=== PATIENT | female | born 1970 | race American Indian/Alaskan Native ===

== ENCOUNTER → 2017-09-20 | Outpatient (REF) | payer OTHER ==
[2017-09-20 17:51] LABS: ESTIMATED AVERAGE GLUCOSE 120 MG/DL (60-110); HEMOGLOBIN A1c 5.8 %
[2017-09-20 17:53] LABS: ALBUMIN 4.5 GM/DL (3.2-5.2); ALBUMIN/GLOBULIN RATIO 1.18 (1.00-1.93); ALKALINE PHOSPHATASE 81 U/L (45-117); ALT/SGPT 23 U/L (12-78); ANION GAP 6 MEQ/L (8-16); AST/SGOT 25 U/L (7-37); BILIRUBIN,TOTAL 0.3 MG/DL (0.2-1.0); BLOOD UREA NITROGEN 11 MG/DL (7-18); CALCIUM LEVEL 9.6 MG/DL (8.5-10.1); CARBON DIOXIDE LEVEL 29 MEQ/L (21-32); CHLORIDE LEVEL 106 MEQ/L (98-107); CHOLESTEROL LEVEL 204 MG/DL (<200); CHOLESTEROL RISK RATIO 3.777 (<5); CREATININE FOR GFR 0.61 MG/DL (0.55-1.30); GLOMERULAR FILTRATION RATE > 60.0 (>58); GLUCOSE, FASTING 97 MG/DL (70-100); HDL CHOLESTEROL 54 MG/DL (>40); LDL CHOLESTEROL 132.6 MG/DL (<100); NON-HDL-C 150 MG/DL; POTASSIUM SERUM 4.3 MEQ/L (3.5-5.1); SODIUM LEVEL 141 MEQ/L (136-145); TOTAL PROTEIN 8.3 GM/DL (6.4-8.2); TRIGLYCERIDES LEVEL 87 MG/DL (<150)
[2017-09-20 18:08] LABS: BASO # 0.1 10^3/uL (0.0-0.2); BASO % 0.8 % (0.0-1.0); EOS # 0.2 10^3/uL (0.0-0.50); EOS % 2.3 % (0.0-3.0); HEMATOCRIT 39.2 % (36.0-47.0); HEMOGLOBIN 12.9 g/dl (12.0-16.0); IMMATURE GRANULOCYTE % 0.3 % (0-3.0); LYMPH # 2.8 10^3/uL (1.5-4.5); LYMPH % 42.3 % (24.0-44.0); MEAN CORPUSCULAR HEMOGLOBIN 29.3 pg (27.0-33.0); MEAN CORPUSCULAR HGB CONC 32.9 g/dl (32.0-36.5); MEAN CORPUSCULAR VOLUME 89.1 fl (80.0-96.0); MONO # 0.4 10^3/uL (0.0-0.8); MONO % 6.3 % (0.0-5.0); NEUTROPHILS # 3.1 10^3/uL (1.8-7.7); PLATELET COUNT, AUTOMATED 251 10^3/uL (150-450); RED CELL DISTRIBUTION WIDTH 13.5 % (11.5-14.5); WHITE BLOOD COUNT 6.5 10^3/uL (4.0-10.0)
== END ==
LOC: M SFHCPLAZ 15:39
DX: Z00.00 Encounter for general adult medical examination without abnormal findings (principal)
CPT/HCPCS: 83036

== ENCOUNTER → 2017-11-12 | Outpatient (REF) | payer OTHER | LOC: M LAB REF 17:17 | DX: J02.9 Acute pharyngitis, unspecified (principal) ==

== ENCOUNTER → 2017-12-21 | Outpatient (REF) | payer OTHER ==
[2017-12-24 14:16] LABS: HPV HYBRID CAPTURE II Positive (Negative)
== END ==
LOC: M SFHCWAGY 13:30
DX: Z12.4 Encounter for screening for malignant neoplasm of cervix (principal)

== ENCOUNTER → 2017-12-28 | Outpatient (CLI) | payer OTHER | LOC: M WHC 14:27 | DX: Z12.31 Encounter for screening mammogram for malignant neoplasm of breast (principal) | CPT/HCPCS: 77067 ==

== ENCOUNTER → 2018-05-05 | Outpatient (REF) | payer OTHER ==
[2018-05-05 13:10] LABS: C REACTIVE PROTEIN QUANTITATIV < 0.30 MG/DL (0.00-0.30)
[2018-05-05 13:10] LABS: URIC ACID 3.8 MG/DL (2.6-6.0)
[2018-05-05 13:46] LABS: ERYTHROCYTE SEDIMENTATION RATE 17 mm/hr (0-20)
[2018-05-05 15:31] LABS: ESTIMATED AVERAGE GLUCOSE 123 MG/DL (60-110); HEMOGLOBIN A1c 5.9 %
== END ==
LOC: M SFHCPLAZ 09:10
DX: M13.0 Polyarthritis, unspecified (principal); R73.03 Prediabetes

== ENCOUNTER → 2018-08-11 | Outpatient (REF) | payer OTHER ==
[2018-08-11 16:00] LABS: HEMOGLOBIN A1c 6.1 %
== END ==
LOC: M SFHCPLAZ 08:54
PROVIDERS: ATTEND Family Medicine
DX: R73.03 Prediabetes (principal); G62.9 Polyneuropathy, unspecified

== ENCOUNTER → 2018-10-31 | Outpatient (REF) | payer OTHER ==
[2018-10-31 19:16] LABS: IMMUNOGLOBULIN E 40.1 IU/ML (<100)
== END ==
LOC: M LABDRAWP 15:13
PROVIDERS: ATTEND Allergy & Immunology
DX: J30.2 Other seasonal allergic rhinitis (principal); J32.0 Chronic maxillary sinusitis; R05 Cough

== ENCOUNTER → 2018-12-29 | Outpatient (REF) | payer OTHER ==
[2018-12-31 15:14] LABS: HPV HYBRID CAPTURE II Negative (Negative)
== END ==
LOC: M SFHCWAGY 15:07
PROVIDERS: ATTEND Nurse Practitioner Family
DX: Z12.4 Encounter for screening for malignant neoplasm of cervix (principal)

== ENCOUNTER → 2018-12-29 | Outpatient (CLI) | payer OTHER ==
--- NOTE | 2018-12-30 08:18 | REPMRS ---
Patient History The patient states she had a clinical breast exam in 12/2018. Patient is postmenopausal. Family history of breast cancer at age 50 or over in paternal aunt. No Hormone Replacement Therapy Digital Woman Screen Mammo: December 29, 2018 - Exam #: [id number] Bilateral CC and MLO view(s) were taken. Technologist: Batsheva Munoz, Technologist Prior study comparison: December 28, 2017, bilateral digital woman screen mammo performed at [facility]. FINDINGS: The breast tissue is heterogeneously dense. This may lower the sensitivity of mammography. There are disbursed calcifications noted in the left breast unchanged. There is a moderate amount of heterogeneously dense fibroglandular tissue which is fairly symmetric. There is no interval development of dominant mass, architectural distortion, or clustered microcalcification typical of malignancy. There has been no change in the appearance of the mammogram from the prior studies. 3-D tomosynthesis shows no additional findings. Assessment: BI-RADS/ACR category 2 mammogram. Benign Findings. Recommendation Routine screening mammogram of both breasts in 1 year (for women over age 40). This patient's Lifetime Breast Cancer RIsk is estimated at 15.7 %. This mammogram was interpreted with the aid of an FDA-approved computer-aided dectection system. Electronically Signed By: Luisito Grimm MD 12/30/18 0818
== END ==
LOC: M WHC 14:46
PROVIDERS: ATTEND Nurse Practitioner Family
DX: Z12.31 Encounter for screening mammogram for malignant neoplasm of breast (principal)

== ENCOUNTER → 2019-02-28 | Outpatient (REF) | payer OTHER ==
[2019-02-28 12:54] LABS: ALBUMIN 3.9 GM/DL (3.2-5.2); ALT/SGPT 23 U/L (12-78); BILIRUBIN,TOTAL 0.3 MG/DL (0.2-1.0); BLOOD UREA NITROGEN 12 MG/DL (7-18); CALCIUM LEVEL 9.4 MG/DL (8.5-10.1); CARBON DIOXIDE LEVEL 29 MEQ/L (21-32); CHLORIDE LEVEL 104 MEQ/L (98-107); CHOLESTEROL LEVEL 191 MG/DL (<200); CHOLESTEROL RISK RATIO 4.063 (<5); GLOMERULAR FILTRATION RATE > 60.0 (>51); GLUCOSE, FASTING 88 MG/DL (70-100); HDL CHOLESTEROL 47 MG/DL (>40); LDL CHOLESTEROL 118 MG/DL (<100); NON-HDL-C 144 MG/DL; SODIUM LEVEL 140 MEQ/L (136-145); TOTAL PROTEIN 7.5 GM/DL (6.4-8.2); TRIGLYCERIDES LEVEL 132 MG/DL (<150)
[2019-02-28 13:01] LABS: HEMOGLOBIN A1c 6.1 %
== END ==
LOC: M SFHCPLAZ 08:47
PROVIDERS: ATTEND Family Medicine
DX: R73.03 Prediabetes (principal)

== ENCOUNTER → 2019-03-07 | Outpatient (REF) | payer OTHER ==
[2019-03-07 13:18] LABS: BASO % 0.7 % (0.0-1.0); EOS # 0.1 10^3/uL (0.0-0.50); EOS % 1.2 % (0.0-3.0); HEMATOCRIT 40.7 % (36.0-47.0); HEMOGLOBIN 13.3 g/dl (12.0-15.5); LYMPH # 2.2 10^3/uL (1.5-4.5); LYMPH % 36.7 % (24.0-44.0); MEAN CORPUSCULAR HEMOGLOBIN 29.6 pg (27.0-33.0); MEAN CORPUSCULAR HGB CONC 32.7 g/dl (32.0-36.5); MEAN CORPUSCULAR VOLUME 90.6 fl (80.0-96.0); MONO # 0.4 10^3/uL (0.0-0.8); MONO % 5.9 % (0.0-5.0); NEUTROPHILS # 3.3 10^3/uL (1.8-7.7); NEUTROPHILS % 55.3 % (36.0-66.0); PLATELET COUNT, AUTOMATED 229 10^3/uL (150-450); RED BLOOD COUNT 4.49 10^6/uL (4.00-5.40)
== END ==
LOC: M SFHCPLAZ 11:26
PROVIDERS: ATTEND Family Medicine
DX: G62.9 Polyneuropathy, unspecified (principal)

== ENCOUNTER → 2019-03-07 | Outpatient (CLI) | payer OTHER ==
--- NOTE | 2019-03-07 19:53 | REP ---
CERVICAL SPINE SERIES: Three views cervical spine performed. There is no compression fracture or malalignment. There is no prevertebral soft tissue swelling. I do not see significant disc space narrowing. IMPRESSION: Unremarkable cervical spine series. Further evaluation may be made with MRI if clinically indicated. Electronically Signed by Jackson Park MD 03/08/2019 02:34 P
--- NOTE | 2019-03-07 21:18 | REP ---
BILATERAL FEET: AP and lateral views of bilateral feet performed. No fracture or dislocation is seen bilaterally. I do not see significant joint space narrowing bilaterally. There is mild inferior calcaneal spurring on the left. IMPRESSION: Mild inferior calcaneal spurring on the left without other significant abnormality. Electronically Signed by Jackson Park MD 03/08/2019 02:37 P
== END ==
LOC: M RAD 16:36
PROVIDERS: ATTEND Family Medicine
DX: M54.2 Cervicalgia (principal); M77.32 Calcaneal spur, left foot; M79.674 Pain in right toe(s)

== ENCOUNTER → 2019-03-29 | Outpatient (REF) | payer OTHER ==
[2019-03-31 08:06] LABS: MUMPS VIRUS IgG ANTIBODY 72.8 AU/mL (Immune >10.9); RUBEOLA IgG ANTIBODY >300.0 AU/mL (Immune >16.4)
[2019-03-31 10:38] LABS: RUBELLA IgG QUALITATIVE IMMUNE (IMMUNE)
== END ==
LOC: M SFHCPLAZ 12:48
PROVIDERS: ATTEND Family Medicine
DX: Z78.9 Other specified health status (principal)

== ENCOUNTER → 2019-05-02 | Outpatient (REF) | payer OTHER | LOC: M SFHCPLAZ 11:51 | PROVIDERS: ATTEND Family Medicine | DX: Z13.1 Encounter for screening for diabetes mellitus (principal) ==

== ENCOUNTER → 2019-05-04 | Outpatient (REF) | payer OTHER ==
[2019-05-04 14:23] LABS: APPEARANCE, URINE CLEAR (CLEAR); BACTERIA, URINE AUTO NEGATIVE (NEGATIVE); BILIRUBIN, URINE AUTO NEGATIVE (NEGATIVE); BLOOD, URINE BLOOD NEGATIVE (NEGATIVE); COLOR, URINE STRAW (YELLOW); GLUCOSE, URINE (UA) AUTO NEGATIVE (NEGATIVE); KETONE, URINE AUTO NEGATIVE (NEGATIVE); LEUKOCYTE ESTERASE, URINE AUTO NEGATIVE (NEGATIVE); NITRITE, URINE AUTO NEGATIVE (NEGATIVE); PROTEIN, URINE AUTO NEGATIVE (NEGATIVE); RBC, URINE AUTO 2 /HPF (0-3); SQUAMOUS EPITHELIAL CELL UR AU 0 /HPF (0-6); UROBILINOGEN, URINE AUTO 0.2 mg/dL (0.0-2.0); WBC, URINE AUTO 0 /HPF (0-3)
== END ==
LOC: M SFHCPLAZ 11:30
PROVIDERS: ATTEND Family Medicine
DX: R82.998 Other abnormal findings in urine (principal)

== ENCOUNTER 2019-06-09 08:31 | Day surgery (SDC) | payer OTHER ==
[~2019-06-09] VITALS: Ht 157.5 cm; Wt 47.2 kg
[~2019-06-09 08:31] MED LIST: FISH1000 PO; NAPR250T4 PO; NEOM28.3 TP; NS 1,000 ML IV ONE
[2019-06-09] MEDS ORDERED: PROPOFOL 200 MG/20 ML VIAL As Ordered ONE (09:29)
[2019-06-09] MEDS ORDERED: LIDOCAINE 2% INJ 100 MG/5 ML SDV (FOR ANES.) As Ordered ONE (09:29)
--- NOTE | 2019-06-09 09:55 | ROOR ---
Patient Name: Ramiro Martinez Procedure Date: 06/09/2019 9:10 AM Date of : 1970 Age: 49 Room: [facility] Gender: Female Note Status: Finalized Procedure: Colonoscopy Indications: Screening for colorectal malignant neoplasm Providers: Luis Alberto Gastelum MD Referring MD: Radames LOREDO MD Requesting Provider: Medicines: Monitored Anesthesia Care Complications: No immediate complications. Procedure: Pre-Anesthesia Assessment: - Prior to the procedure, a History and Physical was performed, and patient medications and allergies were reviewed. The patient is competent. The risks and benefits of the procedure and the sedation options and risks were discussed with the patient. All questions were answered and informed consent was obtained. Patient identification and proposed procedure were verified by the physician, the nurse and the anesthesiologist in the procedure room. Mental Status Examination: alert and oriented. Airway Examination: normal oropharyngeal airway and neck mobility. Respiratory Examination: clear to auscultation. CV Examination: normal. Prophylactic Antibiotics: The patient does not require prophylactic antibiotics. Prior Anticoagulants: The patient has taken no previous anticoagulant or antiplatelet agents. ASA Grade Assessment: II - A patient with mild systemic disease. After reviewing the risks and benefits, the patient was deemed in satisfactory condition to undergo the procedure. The anesthesia plan was to use monitored anesthesia care (MAC). Immediately prior to administration of medications, the patient was re-assessed for adequacy to receive sedatives. The heart rate, respiratory rate, oxygen saturations, blood pressure, adequacy of pulmonary ventilation, and response to care were monitored throughout the procedure. The physical status of the patient was re-assessed after the procedure. The colonoscopy was performed without difficulty. The patient tolerated the procedure well. The quality of the bowel preparation was good. The terminal ileum, ileocecal valve, appendiceal orifice, and rectum were photographed. Scope insertion time was 3 minutes. Scope withdrawal time was 9 minutes. The total duration of the procedure was 12 minutes. The Colonoscope was introduced through the anus and advanced to the terminal ileum, with identification of the appendiceal orifice and IC valve. Findings: The perianal and digital rectal examinations were normal. The terminal ileum appeared normal. Patchy mild mucosal changes characterized by erosions, granularity and loss of vascularity were found in the recto-sigmoid colon and in the ascending colon. Biopsies were taken with a cold forceps for histology. Verification of patient identification for the specimen was done by the physician and nurse using the patient's name, date and medical record number. Estimated blood loss was minimal. Non-bleeding external and internal hemorrhoids were found during retroflexion. The hemorrhoids were medium-sized. There is no endoscopic evidence of polyps in the entire colon. Impression: - The examined portion of the ileum was normal. - Patchy mild mucosal changes were found in the recto-sigmoid colon and in the ascending colon secondary to colitis. Biopsied. - Non-bleeding external and internal hemorrhoids. Recommendation: - Patient has a contact number available for emergencies. The signs and symptoms of potential delayed complications were discussed with the patient. Return to normal activities tomorrow. Written discharge instructions were provided to the patient. - High fiber diet. - Continue present medications. - Await pathology results. - Repeat colonoscopy in 10 years for screening purposes. - Telephone ERCP clinic for pathology results in 2 weeks. - Return to primary care physician. Luis Alberto Gastelum MD Luis Alberto Gastelum MD 06/09/2019 9:54:51 AM Electronically signed by Luis Alberto Gastelum MD Number of Addenda: 0 Note Initiated On: 06/09/2019 8:40 AM Estimated Blood Loss: Estimated blood loss was minimal.
[2019-06-09 10:15] VITALS: BP 108/77
== END 2019-06-09 10:30 | disposition home or self-care (01) ==
LOC: M OPP 08:31
PROVIDERS: ATTEND Internal Medicine Gastroenterology
DX: Z12.11 Encounter for screening for malignant neoplasm of colon (principal); K64.8 Other hemorrhoids; K52.9 Noninfective gastroenteritis and colitis, unspecified

== ENCOUNTER → 2019-08-31 | Outpatient (CLI) | payer OTHER ==
[~2019-08-31] MED LIST changes: -NS 1,000 ML IV ONE
[2019-08-31 12:51] LABS: ALT/SGPT 24 U/L (12-78); BILIRUBIN,TOTAL 0.5 MG/DL (0.2-1.0); BLOOD UREA NITROGEN 16 MG/DL (7-18); CALCIUM LEVEL 9.2 MG/DL (8.5-10.1); CARBON DIOXIDE LEVEL 31 MEQ/L (21-32); CHLORIDE LEVEL 101 MEQ/L (98-107); CHOLESTEROL LEVEL 175 MG/DL (<200); CHOLESTEROL RISK RATIO 3.571 (<5); CREATININE FOR GFR 0.62 MG/DL (0.55-1.30); GLOMERULAR FILTRATION RATE > 60.0 (>51); GLUCOSE, FASTING 69 MG/DL (70-100); HDL CHOLESTEROL 49 MG/DL (>40); LDL CHOLESTEROL 117 MG/DL (<100); NON-HDL-C 126 MG/DL; POTASSIUM SERUM 3.8 MEQ/L (3.5-5.1); SODIUM LEVEL 137 MEQ/L (136-145); TOTAL PROTEIN 7.3 GM/DL (6.4-8.2); TRIGLYCERIDES LEVEL 44 MG/DL (<150)
[2019-08-31 13:37] LABS: HEMOGLOBIN A1c 5.9 %
== END ==
LOC: M PLALAB 08:43
PROVIDERS: ATTEND Nurse Practitioner Family
DX: R73.01 Impaired fasting glucose (principal); E78.2 Mixed hyperlipidemia

== ENCOUNTER → 2020-04-18 | Outpatient (CLI) | payer OTHER ==
--- NOTE | 2020-04-18 16:08 | REPMRS ---
Patient History The patient states she had a clinical breast exam in April 2020.Family history of breast cancer at age 50 or over in paternal aunt. No Hormone Replacement Therapy 3D TOMOSYNTHESIS WAS PERFORMED. The Brandon Swan lifetime risk for breast cancer is 15.4%. Alessiasuzibg letty anniaMarianne Digital Woman Screen Mammo: April 18, 2020 - Exam #: [id number] Bilateral CC and MLO view(s) were taken. Technologist: Cristy Sepulveda, Technologist Prior study comparison: December 29, 2018, bilateral digital woman screen mammo performed at [facility]. December 28, 2017, bilateral digital woman screen mammo performed at [facility]. FINDINGS: The breast tissue is heterogeneously dense. This may lower the sensitivity of mammography. There has been no change in the appearance of the mammogram from the prior studies. There is a moderate amount of residual fibroglandular tissue which is fairly symmetric. There is no interval development of dominant mass, areas of architectural distortion, or clustered microcalcification typical of malignancy. Assessment: BI-RADS/ACR category 1 mammogram. Negative Mammogram. Recommendation Routine screening mammogram in 1 year (for women over age 40). This mammogram was interpreted with the aid of an FDA-approved computer-aided dectection system. Electronically Signed By: Jackson Park MD 04/18/20 [id number]
== END ==
LOC: M WHC 15:19
PROVIDERS: ATTEND Nurse Practitioner Family
DX: Z12.31 Encounter for screening mammogram for malignant neoplasm of breast (principal)

== ENCOUNTER → 2020-04-18 | Outpatient (REF) | payer OTHER | LOC: M SFHCWAGY 17:15 | PROVIDERS: ATTEND Nurse Practitioner Family | DX: Z12.4 Encounter for screening for malignant neoplasm of cervix (principal); Z01.419 Encounter for gynecological examination (general) (routine) without abnormal findings ==

== ENCOUNTER → 2020-04-25 | Outpatient (REF) | payer OTHER ==
[2020-04-25 14:10] LABS: APPEARANCE, URINE CLEAR (CLEAR); BACTERIA, URINE AUTO NEGATIVE (NEGATIVE); BILIRUBIN, URINE AUTO NEGATIVE (NEGATIVE); BLOOD, URINE BLOOD NEGATIVE (NEGATIVE); COLOR, URINE COLORLESS (YELLOW); GLUCOSE, URINE (UA) AUTO NEGATIVE (NEGATIVE); KETONE, URINE AUTO NEGATIVE (NEGATIVE); LEUKOCYTE ESTERASE, URINE AUTO NEGATIVE (NEGATIVE); NITRITE, URINE AUTO NEGATIVE (NEGATIVE); PROTEIN, URINE AUTO NEGATIVE (NEGATIVE); RBC, URINE AUTO 0 /HPF (0-3); SPECIFIC GRAVITY URINE AUTO 1.001 (1.002-1.035); SQUAMOUS EPITHELIAL CELL UR AU 0 /HPF (0-6); UROBILINOGEN, URINE AUTO 0.2 mg/dL (0.0-2.0); WBC, URINE AUTO 0 /HPF (0-3)
[2020-04-25 14:49] LABS: ALT/SGPT 26 U/L (12-78); BILIRUBIN,TOTAL 0.7 MG/DL (0.2-1.0); BLOOD UREA NITROGEN 16 MG/DL (7-18); CALCIUM LEVEL 9.3 MG/DL (8.5-10.1); CARBON DIOXIDE LEVEL 29 MEQ/L (21-32); CHLORIDE LEVEL 106 MEQ/L (98-107); CHOLESTEROL LEVEL 179 MG/DL (<200); CREATININE FOR GFR 0.64 MG/DL (0.55-1.30); FREE T4 1.06 NG/DL (0.76-1.46); GLOMERULAR FILTRATION RATE > 60.0 (>51); GLUCOSE, FASTING 76 MG/DL (70-100); HDL CHOLESTEROL 57 MG/DL (>40); LDL CHOLESTEROL 110 MG/DL (<100); NON-HDL-C 122 MG/DL; POTASSIUM SERUM 4.4 MEQ/L (3.5-5.1); SODIUM LEVEL 139 MEQ/L (136-145); TOTAL PROTEIN 7.5 GM/DL (6.4-8.2); TRIGLYCERIDES LEVEL 60 MG/DL (<150)
[2020-04-25 14:52] LABS: TOTAL 25(OH) VITAMIN D 27.4 NG/ML (30.0-100.0); VITAMIN B12 LEVEL 351 PG/ML (247-911)
[2020-04-25 14:53] LABS: FOLATE 13.4 NG/ML (>5.4)
[2020-04-25 14:57] LABS: HEMOGLOBIN A1c 5.4 %
== END ==
LOC: M PLALAB 09:30
PROVIDERS: ATTEND Nurse Practitioner Family
DX: E78.2 Mixed hyperlipidemia (principal); G62.9 Polyneuropathy, unspecified; R73.01 Impaired fasting glucose; N39.0 Urinary tract infection, site not specified; E55.9 Vitamin D deficiency, unspecified

== ENCOUNTER → 2020-05-10 | Outpatient (CLI) | payer OTHER ==
--- NOTE | 2020-05-10 16:10 | REPPI ---
INDICATION: PAIN RIGHT SHOULDER. COMPARISON: None. TECHNIQUE: Three views obtained. FINDINGS: No acute fracture, dislocation or intrinsic bone disease. There is mild narrowing and spurring at the acromioclavicular joint. Glenohumeral joint appears unremarkable. IMPRESSION: Mild degenerative changes acromioclavicular joint. <Electronically signed by Jackson Park > 05/10/20 [id number]
== END ==
LOC: M PLAIMG 14:56
PROVIDERS: ATTEND Nurse Practitioner Family
DX: M25.511 Pain in right shoulder (principal)

== ENCOUNTER → 2021-02-10 | Outpatient (CLI) | payer OTHER ==
[~2021-02-10] MED LIST changes: +NAPR-849 PO; -NAPR250T4 PO
--- NOTE | 2021-02-10 14:21 | REP ---
INDICATION: LEFT HIP PAIN. COMPARISON: None TECHNIQUE: AP and frog-lateral views FINDINGS: The hip joint space is symmetric and relatively well maintained. There is no acute fracture or destructive osseous lesion. IMPRESSION: Within normal limits <Electronically signed by Wallace Joseph > 02/10/21 [id number]
[2021-02-10 16:08] LABS: HEMOGLOBIN A1c 5.7 %
[2021-02-10 16:18] LABS: ALBUMIN 4.2 GM/DL (3.2-5.2); ALT/SGPT 23 U/L (12-78); BILIRUBIN,TOTAL 0.5 MG/DL (0.2-1.0); BLOOD UREA NITROGEN 13 MG/DL (7-18); CALCIUM LEVEL 9.4 MG/DL (8.5-10.1); CARBON DIOXIDE LEVEL 30 MEQ/L (21-32); CHLORIDE LEVEL 105 MEQ/L (98-107); CHOLESTEROL LEVEL 209 MG/DL (<200); CREATININE FOR GFR 0.63 MG/DL (0.55-1.30); GLOMERULAR FILTRATION RATE > 60.0 (>51); GLUCOSE, FASTING 78 MG/DL (70-100); HDL CHOLESTEROL 55 MG/DL (>40); LDL CHOLESTEROL 143 MG/DL (<100); NON-HDL-C 154 MG/DL; POTASSIUM SERUM 3.9 MEQ/L (3.5-5.1); SODIUM LEVEL 140 MEQ/L (136-145); TOTAL PROTEIN 7.6 GM/DL (6.4-8.2); TRIGLYCERIDES LEVEL 57 MG/DL (<150)
[2021-02-10 16:27] LABS: TOTAL 25(OH) VITAMIN D 24.2 NG/ML (30.0-100.0)
== END ==
LOC: M PLAIMG 12:26 → M PLALAB 12:26
PROVIDERS: ATTEND Nurse Practitioner Family
DX: M25.552 Pain in left hip (principal); E78.2 Mixed hyperlipidemia; R73.01 Impaired fasting glucose; E55.9 Vitamin D deficiency, unspecified

== ENCOUNTER → 2021-02-20 | Outpatient (CLI) | payer OTHER ==
[2021-02-20 17:15] LABS: BASO % 0.6 % (0.0-1.0); EOS # 0.1 10^3/uL (0.0-0.5); EOS % 1.4 % (0.0-3.0); HEMATOCRIT 34.6 % (36.0-47.0); HEMOGLOBIN 11.4 g/dl (12.0-15.5); LYMPH # 1.8 10^3/uL (1.5-5.0); LYMPH % 36.2 % (24.0-44.0); MEAN CORPUSCULAR HEMOGLOBIN 29.8 pg (27.0-33.0); MEAN CORPUSCULAR HGB CONC 32.9 g/dl (32.0-36.5); MEAN CORPUSCULAR VOLUME 90.6 fl (80.0-96.0); MONO # 0.3 10^3/uL (0.0-0.8); MONO % 6.2 % (2.0-8.0); NEUTROPHILS # 2.7 10^3/uL (1.5-8.5); NEUTROPHILS % 55.2 % (36.0-66.0); PLATELET COUNT, AUTOMATED 198 10^3/uL (150-450); RED BLOOD COUNT 3.82 10^6/uL (4.00-5.40); WHITE BLOOD COUNT 4.8 10^3/uL (4.0-10.0)
[2021-02-20 17:17] LABS: C REACTIVE PROTEIN QUANTITATIV < 0.30 MG/DL (0.00-0.30); RHEUMATOID FACTOR QUANT 23.6 IU/ML (<15.0); URIC ACID 4.4 MG/DL (2.6-6.0)
[2021-02-20 17:52] LABS: ERYTHROCYTE SEDIMENTATION RATE 12 mm/hr (0-30)
== END ==
LOC: M PLALAB 14:32
DX: M19.072 Primary osteoarthritis, left ankle and foot (principal)

== ENCOUNTER → 2021-05-19 | Outpatient (REF) | payer OTHER | LOC: M SFHCWAGY 19:37 | PROVIDERS: ATTEND Advanced Practice Midwife | DX: Z12.4 Encounter for screening for malignant neoplasm of cervix (principal) ==

== ENCOUNTER → 2021-05-19 | Outpatient (CLI) | payer OTHER ==
--- NOTE | 2021-05-19 14:42 | REPMRS ---
Patient History The patient states she had a clinical breast exam on 05-19-2021. Patient is postmenopausal. No Hormone Replacement Therapy Patient states no breast complaints today. Patient has signed MRS History Sheet. Digital Woman Screen Mammo: May 19, 2021 - Exam #: [id number] Bilateral CC and MLO view(s) were taken. Technologist: Licha Leo Interface Engineer Prior study comparison: April 18, 2020, bilateral digital woman screen mammo performed at [facility]. December 29, 2018, bilateral digital woman screen mammo performed at [facility]. FINDINGS: The breast tissue is heterogeneously dense. This may lower the sensitivity of mammography. Screening. Digital screening (2D) mammography was performed bilaterally in the CC and MLO projections. Additionally, breast tomosynthesis (3D mammography) was performed bilaterally in the CC and MLO projections. Todays exam was compared to the prior exam/exams. By history, the patient has no complaints of a palpable breast abnormality or other significant breast complaints. The breasts are unchanged in size and shape. Once again, dense heterogenous fibroglandular elements are seen bilaterally in a stable appearing pattern but to such a degree that the sensitivity of the mammogram in detecting cancer is decreased.There are no americo-soft tissue densities or spiculated masses. There is no internal architectural distortion.Calcifications are again seen in the breast/breasts. Some of these are in groups but no one group appears more suspicious than any other. There are no suspicious americo-calcific clusters. Skin thickening or nipple retraction is not present. IMPRESSION: BI-RADS Category 2- Benign Findings. There is no evidence of malignant alteration of the breasts. Followup examination recommended in one year. The Volpara volumetric breast density category is C, the breasts are heterogenously dense which may obscure small masses. This mammogram was read with the assistance of [employer],an FDA approved computer aided detection system for mammography. The lifetime Tyrer-Cuzick score is 10.3 % Due to the density of the breasts or Tyrer Cuzick score of 20% or greater, MRI/whole breast screening ultrasound is warranted. Negative x-ray reports should not delay surgical consultation if a dominant or clinically suspicious mass is present. Not all breast cancers can be identified by mammography. Therefore, we recommend that you continue to perform regular breast self-examination and physical examination and then promptly contact your physician of any concerns or changes. Adenosis and dense breasts may obscure an underlying neoplasm. Assessment: BI-RADS/ACR category 2 mammogram. Benign Findings. Recommendation Routine screening mammogram of both breasts in 1 year. Electronically Signed By: Wallace Joseph DO 05/19/21 [id number]
== END ==
LOC: M WHC 13:28
PROVIDERS: ATTEND Advanced Practice Midwife
DX: Z12.31 Encounter for screening mammogram for malignant neoplasm of breast (principal); Z78.0 Asymptomatic menopausal state

== ENCOUNTER → 2021-07-31 | Outpatient (CLI) | payer OTHER ==
[2021-07-31 10:51] LABS: BASO % 0.5 % (0.0-1.0); EOS # 0.1 10^3/uL (0.0-0.5); EOS % 3.2 % (0.0-3.0); HEMATOCRIT 40.9 % (36.0-47.0); LYMPH # 1.6 10^3/uL (1.5-5.0); LYMPH % 43.5 % (24.0-44.0); MEAN CORPUSCULAR HEMOGLOBIN 29.5 pg (27.0-33.0); MEAN CORPUSCULAR HGB CONC 31.8 g/dl (32.0-36.5); MONO # 0.3 10^3/uL (0.0-0.8); MONO % 7.3 % (2.0-8.0); NEUTROPHILS # 1.7 10^3/uL (1.5-8.5); NEUTROPHILS % 45.2 % (36.0-66.0); PLATELET COUNT, AUTOMATED 206 10^3/uL (150-450); WHITE BLOOD COUNT 3.7 10^3/uL (4.0-10.0)
[2021-07-31 10:59] LABS: HEMOGLOBIN A1c 5.4 %
[2021-07-31 11:12] LABS: ALT/SGPT 36 U/L (12-78); BILIRUBIN,TOTAL 0.3 MG/DL (0.2-1.0); BLOOD UREA NITROGEN 17 MG/DL (7-18); CALCIUM LEVEL 9.3 MG/DL (8.5-10.1); CARBON DIOXIDE LEVEL 31 MEQ/L (21-32); CHLORIDE LEVEL 103 MEQ/L (98-107); CHOLESTEROL LEVEL 174 MG/DL (<200); CHOLESTEROL RISK RATIO 2.949 (<5); CREATININE FOR GFR 0.62 MG/DL (0.55-1.30); GLOMERULAR FILTRATION RATE > 60.0 (>51); GLUCOSE, FASTING 91 MG/DL (70-100); HDL CHOLESTEROL 59 MG/DL (>40); LDL CHOLESTEROL 103 MG/DL (<100); NON-HDL-C 115 MG/DL; POTASSIUM SERUM 4.2 MEQ/L (3.5-5.1); SODIUM LEVEL 137 MEQ/L (136-145); TOTAL PROTEIN 7.4 GM/DL (6.4-8.2); TRIGLYCERIDES LEVEL 60 MG/DL (<150)
== END ==
LOC: M PLALAB 07:44
PROVIDERS: ATTEND Nurse Practitioner Family
DX: R73.01 Impaired fasting glucose (principal); E78.2 Mixed hyperlipidemia; E55.9 Vitamin D deficiency, unspecified

== ENCOUNTER → 2021-09-05 | Outpatient (REF) | payer OTHER ==
[2021-09-05 16:31] LABS: BASO % 0.7 % (0.0-1.0); EOS % 0.9 % (0.0-3.0); HEMOGLOBIN 12.8 g/dl (12.0-15.5); LYMPH # 1.5 10^3/uL (1.5-5.0); LYMPH % 34.1 % (24.0-44.0); MEAN CORPUSCULAR HGB CONC 32.8 g/dl (32.0-36.5); MEAN CORPUSCULAR VOLUME 91.5 fl (80.0-96.0); MONO # 0.3 10^3/uL (0.0-0.8); MONO % 7.6 % (2.0-8.0); NEUTROPHILS # 2.5 10^3/uL (1.5-8.5); NEUTROPHILS % 56.5 % (36.0-66.0); PLATELET COUNT, AUTOMATED 214 10^3/uL (150-450); RED BLOOD COUNT 4.26 10^6/uL (4.00-5.40); WHITE BLOOD COUNT 4.3 10^3/uL (4.0-10.0)
[2021-09-05 17:07] LABS: IRON (FE) 106 UG/DL (50-170); MAGNESIUM LEVEL 2.2 MG/DL (1.8-2.4); PHOSPHORUS LEVEL 3.5 MG/DL (2.5-4.9); THYROID STIMULATING HORMONE 0.647 uIU/ML (0.358-3.740)
[2021-09-05 17:08] LABS: HEPATITIS B SURFACE ANTIBODY POSITIVE (POSITIVE)
[2021-09-05 17:09] LABS: VITAMIN B12 LEVEL 399 PG/ML (247-911)
[2021-09-05 17:19] LABS: HEPATITIS B SURFACE ANTIGEN NEGATIVE (NEGATIVE)
[2021-09-05 17:48] LABS: HEPATITIS C VIRUS ABY INDEX 0.1 INDEX (<0.8)
== END ==
LOC: M SFHCRHEU 14:27
PROVIDERS: ATTEND Internal Medicine
DX: R76.8 Other specified abnormal immunological findings in serum (principal); M79.10 Myalgia, unspecified site; D72.819 Decreased white blood cell count, unspecified

== ENCOUNTER → 2022-01-27 | Outpatient (CLI) | payer OTHER ==
[2022-01-27 10:46] LABS: EOS # 0.1 10^3/uL (0.0-0.5); EOS % 2.6 % (0.0-3.0); HEMATOCRIT 39.3 % (36.0-47.0); HEMOGLOBIN 12.7 g/dl (12.0-15.5); LYMPH # 1.5 10^3/uL (1.5-5.0); LYMPH % 37.9 % (24.0-44.0); MEAN CORPUSCULAR HEMOGLOBIN 29.7 pg (27.0-33.0); MEAN CORPUSCULAR HGB CONC 32.3 g/dl (32.0-36.5); MEAN CORPUSCULAR VOLUME 91.8 fl (80.0-96.0); MONO # 0.3 10^3/uL (0.0-0.8); NEUTROPHILS % 51.2 % (36.0-66.0); PLATELET COUNT, AUTOMATED 200 10^3/uL (150-450); RED BLOOD COUNT 4.28 10^6/uL (4.00-5.40); WHITE BLOOD COUNT 3.8 10^3/uL (4.0-10.0)
[2022-01-27 11:54] LABS: HEMOGLOBIN A1c 5.5 %
[2022-01-27 12:12] LABS: ALT/SGPT 36 U/L (12-78); BILIRUBIN,TOTAL 0.3 MG/DL (0.2-1.0); BLOOD UREA NITROGEN 19 MG/DL (7-18); CALCIUM LEVEL 9.6 MG/DL (8.5-10.1); CARBON DIOXIDE LEVEL 29 MEQ/L (21-32); CHLORIDE LEVEL 106 MEQ/L (98-107); CHOLESTEROL LEVEL 165 MG/DL (<200); CHOLESTEROL RISK RATIO 2.946 (<5); CREATININE FOR GFR 0.78 MG/DL (0.55-1.30); GLOMERULAR FILTRATION RATE > 60.0 (>51); GLUCOSE, FASTING 80 MG/DL (70-100); HDL CHOLESTEROL 56 MG/DL (>40); LDL CHOLESTEROL 96 MG/DL (<100); NON-HDL-C 109 MG/DL; POTASSIUM SERUM 4.6 MEQ/L (3.5-5.1); SODIUM LEVEL 137 MEQ/L (136-145); TOTAL 25(OH) VITAMIN D 49.1 NG/ML (30.0-100.0); TOTAL PROTEIN 7.4 GM/DL (6.4-8.2); TRIGLYCERIDES LEVEL 63 MG/DL (<150)
== END ==
LOC: M PLALAB 07:49
PROVIDERS: ATTEND Nurse Practitioner Family
DX: E78.2 Mixed hyperlipidemia (principal); R73.01 Impaired fasting glucose; E55.9 Vitamin D deficiency, unspecified

== ENCOUNTER → 2022-07-09 | Outpatient (CLI) | payer OTHER ==
[2022-07-09 10:34] LABS: BASO % 0.6 % (0.0-1.0); EOS # 0.1 10^3/uL (0.0-0.5); EOS % 2.2 % (0.0-3.0); HEMATOCRIT 39.8 % (36.0-47.0); HEMOGLOBIN 12.8 g/dl (12.0-15.5); LYMPH # 1.8 10^3/uL (1.5-5.0); LYMPH % 49.4 % (24.0-44.0); MEAN CORPUSCULAR HEMOGLOBIN 29.5 pg (27.0-33.0); MEAN CORPUSCULAR HGB CONC 32.2 g/dl (32.0-36.5); MEAN CORPUSCULAR VOLUME 91.7 fl (80.0-96.0); MONO # 0.3 10^3/uL (0.0-0.8); MONO % 7.3 % (2.0-8.0); NEUTROPHILS # 1.4 10^3/uL (1.5-8.5); NEUTROPHILS % 40.5 % (36.0-66.0); PLATELET COUNT, AUTOMATED 194 10^3/uL (150-450); RED BLOOD COUNT 4.34 10^6/uL (4.00-5.40); WHITE BLOOD COUNT 3.6 10^3/uL (4.0-10.0)
[2022-07-09 10:46] LABS: ERYTHROCYTE SEDIMENTATION RATE 14 mm/hr (0-30)
[2022-07-09 10:56] LABS: HEMOGLOBIN A1c 5.4 % (4.0-6.0)
[2022-07-09 11:05] LABS: C REACTIVE PROTEIN QUANTITATIV < 0.40 MG/DL (<1.0)
[2022-07-09 11:06] LABS: ALBUMIN 4.2 G/DL (3.2-5.2); ALKALINE PHOSPHATASE 66 U/L (46-116); ALT/SGPT 23 U/L (7.0-40); AST/SGOT 31 U/L (<34); BILIRUBIN,TOTAL 0.7 MG/DL (0.3-1.2); BLOOD UREA NITROGEN 17 MG/DL (9-23); CALCIUM LEVEL 9.5 MG/DL (8.5-10.1); CARBON DIOXIDE LEVEL 26 MMOL/L (20-31); CHLORIDE LEVEL 100 MMOL/L (98-107); CHOLESTEROL LEVEL 181 MG/DL (<200); CHOLESTEROL RISK RATIO 3.32 (<5); CREATININE FOR GFR 0.71 MG/DL (0.55-1.30); GLOMERULAR FILTRATION RATE > 60.0 (>51); GLUCOSE, FASTING 70 MG/DL (60-100); HDL CHOLESTEROL 54.5 MG/DL (>40); LDL CHOLESTEROL 112.1 MG/DL (<100); NON-HDL-C 127 MG/DL; POTASSIUM SERUM 4.3 MMOL/L (3.5-5.1); SODIUM LEVEL 137 MMOL/L (136-145); TOTAL PROTEIN 7.3 G/DL (5.7-8.2); TRIGLYCERIDES LEVEL 72 MG/DL (<150)
[2022-07-09 13:09] LABS: TOTAL 25(OH) VITAMIN D 51.3 NG/ML (20.0-100.0)
== END ==
LOC: M PLALAB 07:56
PROVIDERS: ATTEND Nurse Practitioner Family
DX: E78.2 Mixed hyperlipidemia (principal); E55.9 Vitamin D deficiency, unspecified; R73.01 Impaired fasting glucose; D72.819 Decreased white blood cell count, unspecified

== ENCOUNTER → 2022-10-23 | Outpatient (CLI) | payer OTHER | LOC: M WHC 08:13 | PROVIDERS: ATTEND Specialist | DX: Z12.31 Encounter for screening mammogram for malignant neoplasm of breast (principal); Z78.0 Asymptomatic menopausal state ==

== ENCOUNTER → 2022-10-23 | Outpatient (REF) | payer OTHER | LOC: M SFHCWAGY 09:57 | PROVIDERS: ATTEND Specialist | DX: Z12.4 Encounter for screening for malignant neoplasm of cervix (principal); N88.8 Other specified noninflammatory disorders of cervix uteri ==

== ENCOUNTER → 2023-03-17 | Outpatient (CLI) | payer OTHER ==
[2023-03-17 13:33] LABS: APPEARANCE, URINE CLEAR (CLEAR); BACTERIA, URINE AUTO NEGATIVE (NEGATIVE); BILIRUBIN, URINE AUTO NEGATIVE (NEGATIVE); BLOOD, URINE BLOOD NEGATIVE (NEGATIVE); COLOR, URINE STRAW (YELLOW); GLUCOSE, URINE (UA) AUTO NEGATIVE (NEGATIVE); KETONE, URINE AUTO NEGATIVE (NEGATIVE); LEUKOCYTE ESTERASE, URINE AUTO NEGATIVE (NEGATIVE); NITRITE, URINE AUTO NEGATIVE (NEGATIVE); PROTEIN, URINE AUTO NEGATIVE (NEGATIVE); RBC, URINE AUTO 0 /HPF (0-3); SPECIFIC GRAVITY URINE AUTO 1.009 (1.002-1.035); SQUAMOUS EPITHELIAL CELL UR AU 0 /HPF (0-6); UROBILINOGEN, URINE AUTO 0.2 mg/dL (0.0-2.0); WBC, URINE AUTO 1 /HPF (0-3)
[2023-03-17 13:33] LABS: BASO # 0.1 10^3/uL (0.0-0.2); BASO % 0.8 % (0.0-1.0); EOS # 0.4 10^3/uL (0.0-0.5); EOS % 5.7 % (0.0-3.0); HEMATOCRIT 39.2 % (36.0-47.0); HEMOGLOBIN 12.7 g/dl (12.0-15.5); LYMPH # 1.7 10^3/uL (1.5-5.0); LYMPH % 25.6 % (24.0-44.0); MEAN CORPUSCULAR HEMOGLOBIN 29.2 pg (27.0-33.0); MEAN CORPUSCULAR HGB CONC 32.4 g/dl (32.0-36.5); MEAN CORPUSCULAR VOLUME 90.1 fl (80.0-96.0); MONO # 0.5 10^3/uL (0.0-0.8); MONO % 7.3 % (2.0-8.0); NEUTROPHILS # 3.9 10^3/uL (1.5-8.5); NEUTROPHILS % 60.3 % (36.0-66.0); PLATELET COUNT, AUTOMATED 278 10^3/uL (150-450); RED BLOOD COUNT 4.35 10^6/uL (4.00-5.40); WHITE BLOOD COUNT 6.5 10^3/uL (4.0-10.0)
[2023-03-17 14:05] LABS: ALKALINE PHOSPHATASE 96 U/L (46-116); ALT/SGPT 35 U/L (7.0-40); AST/SGOT 26 U/L (<34); BILIRUBIN,TOTAL 0.5 MG/DL (0.3-1.2); BLOOD UREA NITROGEN 12 MG/DL (9-23); CALCIUM LEVEL 9.5 MG/DL (8.5-10.1); CARBON DIOXIDE LEVEL 31 MMOL/L (20-31); CHLORIDE LEVEL 101 MMOL/L (98-107); CREATININE FOR GFR 0.57 MG/DL (0.55-1.30); GLOMERULAR FILTRATION RATE > 60.0 (>51); GLUCOSE, FASTING 82 MG/DL (60-100); POTASSIUM SERUM 5.1 MMOL/L (3.5-5.1); SODIUM LEVEL 137 MMOL/L (136-145); TOTAL PROTEIN 7.9 G/DL (5.7-8.2)
== END ==
LOC: M PLALAB 11:46
PROVIDERS: ATTEND Nurse Practitioner Family
DX: R10.30 Lower abdominal pain, unspecified (principal)

== ENCOUNTER → 2023-03-25 | Outpatient (CLI) | payer OTHER | LOC: M RAD 09:41 | PROVIDERS: ATTEND Nurse Practitioner Family | DX: N20.0 Calculus of kidney (principal); R19.09 Other intra-abdominal and pelvic swelling, mass and lump; R10.9 Unspecified abdominal pain ==

== ENCOUNTER 2023-03-31 11:41 | Emergency (ER) | payer OTHER ==
[~2023-03-31] VITALS: Ht 157.5 cm; Wt 49.7 kg
[2023-03-31] MEDS ORDERED: ERGO500029 (11:52)
[2023-03-31 13:21] LABS: HEMATOCRIT 36.2 % (36.0-47.0); HEMOGLOBIN 11.9 g/dl (12.0-15.5); MEAN CORPUSCULAR HGB CONC 32.9 g/dl (32.0-36.5); MEAN CORPUSCULAR VOLUME 88.1 fl (80.0-96.0); PLATELET COUNT, AUTOMATED 326 10^3/uL (150-450); RED BLOOD COUNT 4.11 10^6/uL (4.00-5.40)
[2023-03-31 13:48] LABS: BLOOD UREA NITROGEN 13 MG/DL (9-23); CALCIUM LEVEL 9.3 MG/DL (8.5-10.1); CARBON DIOXIDE LEVEL 30 MMOL/L (20-31); CHLORIDE LEVEL 100 MMOL/L (98-107); CREATININE FOR GFR 0.55 MG/DL (0.55-1.30); GLOMERULAR FILTRATION RATE > 60.0 (>51); GLUCOSE, FASTING 92 MG/DL (60-100); POTASSIUM SERUM 4.5 MMOL/L (3.5-5.1); SODIUM LEVEL 138 MMOL/L (136-145)
[2023-03-31] MEDS ORDERED: ONDANSETRON 4MG 2ML VIAL IV ONE (14:30)
[2023-03-31] MEDS ORDERED: NS 1,000 ML IV ONE (14:30)
[2023-03-31] MEDS ORDERED: ISOVUE-370 76% 100ML VIAL As Ordered ONE (14:52)
[2023-03-31 15:07] LABS: INR 1.05; PROTHROMBIN TIME 13.4 SECONDS (12.5-14.5)
[2023-03-31] MEDS: GASTROGRAFIN SOLUTION 30ML PO SCH ×2 (15:19→15:37)
[2023-03-31 15:29] LABS: LIPASE 34 U/L (12-53)
[2023-03-31 15:31] LABS: ALBUMIN 3.8 G/DL (3.2-5.2); ALKALINE PHOSPHATASE 96 U/L (46-116); ALT/SGPT 56 U/L (7.0-40); AST/SGOT 46 U/L (<34); BILIRUBIN,DIRECT 0.2 MG/DL (<0.4); BILIRUBIN,TOTAL 0.4 MG/DL (0.3-1.2); TOTAL PROTEIN 7.3 G/DL (5.7-8.2)
[2023-03-31] MEDS ORDERED: ACETAMINOPHEN *IV* 1,000 MG in IV 1 EA IV ONE (16:35)
[2023-03-31] MEDS ORDERED: PEPC1TAB5 PO (18:55)
[2023-03-31] MEDS ORDERED: HYDR-3713 PO (18:55)
[2023-03-31] MEDS ORDERED: MIRA3350 PO (18:55)
[2023-03-31 19:03] VITALS: BP 130/70; TEMP 98; O2SAT 100
[2023-03-31 19:16] LABS: CARCINOEMBRYONIC ANTIGEN < 2.0 NG/ML (<2.5)
[2023-03-31 19:31] LABS: CA19-9 TUMOR MARKER,CARBOHYDRA 48.9 U/ML (<35.0)
== END 2023-03-31 19:05 | disposition home or self-care (01) ==
LOC: M ED 11:41
DX: N83.8 Other noninflammatory disorders of ovary, fallopian tube and broad ligament (principal); K76.9 Liver disease, unspecified; R10.2 Pelvic and perineal pain; K62.5 Hemorrhage of anus and rectum; E55.9 Vitamin D deficiency, unspecified; Z79.899 Other long term (current) drug therapy
CPT/HCPCS: 74177; 80048; 80076; 82378; 83605; 83690; 85027; 85610; 85730; 86301; 86304; 86850; 86900; 86901; 96374; 96375; 99283; J0131; J2405; Q9963; Q9967

== ENCOUNTER → 2023-04-01 | Outpatient (CLI) | payer OTHER ==
[~2023-04-01] MED LIST changes: +ERGO500029; +HYDR-3713 PO; +MIRA3350 PO; +PEPC1TAB5 PO
== END ==
LOC: M PLALAB 10:09
PROVIDERS: ATTEND Specialist
DX: R10.9 Unspecified abdominal pain (principal)

== ENCOUNTER → 2023-05-17 | Outpatient (CLI) | payer OTHER ==
[~2023-05-17] MED LIST changes: +ACET-907 PO; -ERGO500029; +ERGO500029 PO; +GABA-282 PO; +OXYC1TAB23 PO
== END ==
LOC: M PLARAD 07:42
PROVIDERS: ATTEND Internal Medicine Medical Oncology
DX: C56.2 Malignant neoplasm of left ovary (principal); C78.7 Secondary malignant neoplasm of liver and intrahepatic bile duct; C78.6 Secondary malignant neoplasm of retroperitoneum and peritoneum
CPT/HCPCS: 78815; A9552

== ENCOUNTER → 2023-05-25 | Outpatient (CLI) | payer OTHER ==
[~2023-05-25] MED LIST changes: +GABA-284 PO; +META28.32 PO; +META28PO PO; +MORP15TASA PO; +ONDA-84 PO; +PROC10TA5 PO; +SENN-23 PO; +SENN8.6T28 PO; +SODI1TAB6 PO
== END ==
LOC: M ONCM 08:13
PROVIDERS: ATTEND Dietitian, Registered
DX: C56.9 Malignant neoplasm of unspecified ovary (principal); Z68.1 Body mass index [BMI] 19.9 or less, adult; Z71.3 Dietary counseling and surveillance

== ENCOUNTER 2023-05-28 10:50 | Inpatient (IN) | payer OTHER ==
[~2023-05-28] VITALS: Ht 157.5 cm; Wt 46.3 kg
[~2023-05-28 10:50] MED LIST changes: -GABA-284 PO; -META28PO PO; -MORP15TASA PO; -SENN-23 PO; -SENN8.6T28 PO; -SODI1TAB6 PO
[2023-05-28] MEDS ORDERED: MORPHINE 4 MG/ML 1ML VIAL IV ONE (12:15)
[2023-05-28] MEDS ORDERED: NS 1,000 ML IV ONE (12:15)
[2023-05-28 13:32] LABS: BASO % 0.3 % (0.0-1.0); EOS # 0.6 10^3/uL (0.0-0.5); EOS % 7.7 % (0.0-3.0); HEMATOCRIT 31.7 % (36.0-47.0); HEMOGLOBIN 10.4 g/dl (12.0-15.5); LYMPH # 1.1 10^3/uL (1.5-5.0); LYMPH % 14.4 % (24.0-44.0); MEAN CORPUSCULAR HEMOGLOBIN 27.1 pg (27.0-33.0); MEAN CORPUSCULAR HGB CONC 32.8 g/dl (32.0-36.5); MEAN CORPUSCULAR VOLUME 82.6 fl (80.0-96.0); MONO # 0.1 10^3/uL (0.0-0.8); MONO % 1.3 % (2.0-8.0); NEUTROPHILS # 5.9 10^3/uL (1.5-8.5); NEUTROPHILS % 75.3 % (36.0-66.0); PLATELET COUNT, AUTOMATED 398 10^3/uL (150-450); RED BLOOD COUNT 3.84 10^6/uL (4.00-5.40); WHITE BLOOD COUNT 7.8 10^3/uL (4.0-10.0)
[2023-05-28 13:53] LABS: INR 1.04; PROTHROMBIN TIME 13.3 SECONDS (12.5-14.5)
[2023-05-28 13:54] LABS: LIPASE 23 U/L (12-53); PARTIAL THROMBOPLASTIN TIME 25.5 SECONDS (24.8-34.2)
[2023-05-28 13:56] LABS: ALKALINE PHOSPHATASE 134 U/L (46-116); ALT/SGPT 78 U/L (7.0-40); AST/SGOT 69 U/L (<34); BILIRUBIN,DIRECT 0.2 MG/DL (<0.4); BILIRUBIN,TOTAL 0.5 MG/DL (0.3-1.2); BLOOD UREA NITROGEN 11 MG/DL (9-23); CALCIUM LEVEL 8.6 MG/DL (8.5-10.1); CARBON DIOXIDE LEVEL 28 MMOL/L (20-31); CHLORIDE LEVEL 95 MMOL/L (98-107); CREATININE FOR GFR 0.36 MG/DL (0.55-1.30); GLOMERULAR FILTRATION RATE > 60.0 (>51); GLUCOSE, FASTING 95 MG/DL (60-100); POTASSIUM SERUM 4.5 MMOL/L (3.5-5.1); SODIUM LEVEL 129 MMOL/L (136-145); TOTAL PROTEIN 6.7 G/DL (5.7-8.2)
[2023-05-28] MEDS ORDERED: HYDROMORPHONE HCL 0.5 MG/ 0.5 ML SYRINGE IV ONE (14:40)
[2023-05-28] MEDS ORDERED: HYDROMORPHONE HCL 0.5 MG/ 0.5 ML SYRINGE IV PRN (15:20)
[2023-05-28] MEDS ORDERED: ONDANSETRON 4MG 2ML VIAL IV PRN (15:20)
[2023-05-28] MEDS ORDERED: MORPHINE 30 MG TAB **MSIR PO PRN (15:20)
[2023-05-28] MEDS ORDERED: PILL CUTTER 1 EACH XX PRN (15:55)
[2023-05-28] MEDS ORDERED: MED REC IN PROGRESS XX SCH (17:00)
[2023-05-28] MEDS ORDERED: META28PO PO (18:00)
[2023-05-28] MEDS: SODIUM CHLORIDE 1 GM TAB PO SCH (18:00)
[2023-05-28] MEDS ORDERED: HOME MED LIST COMPLETE! XX SCH (18:05)
[2023-05-28 18:30] VITALS: BP 116/73; TEMP 98.6; O2SAT 99
[2023-05-28] MEDS ORDERED: METAMUCIL (PSYLLIUM) PACKET PO PRN (19:20)
[2023-05-28] MEDS: GABAPENTIN 400MG CAP PO SCH (20:47)
[2023-05-28] MEDS: DOCUSATE SODIUM 100MG CAPSULE PO SCH (20:48)
[2023-05-28] MEDS: MORPHINE 15 MG SA TAB PO SCH (20:48)
[2023-05-28] MEDS ORDERED: SENNA 8.6 MG TAB (SENOKOT) PO SCH (21:00)
[2023-05-28] MEDS ORDERED: GABAPENTIN 100 MG CAP PO SCH (21:00)
[2023-05-28 22:00] VITALS: BP 115/73; TEMP 98.6; O2SAT 99
[2023-05-29 05:42] LABS: BASO % 0.6 % (0.0-1.0); EOS # 0.9 10^3/uL (0.0-0.5); EOS % 13.7 % (0.0-3.0); HEMATOCRIT 30.8 % (36.0-47.0); LYMPH # 1.1 10^3/uL (1.5-5.0); MEAN CORPUSCULAR HEMOGLOBIN 26.9 pg (27.0-33.0); MEAN CORPUSCULAR HGB CONC 32.5 g/dl (32.0-36.5); MEAN CORPUSCULAR VOLUME 82.8 fl (80.0-96.0); MONO # 0.1 10^3/uL (0.0-0.8); MONO % 1.2 % (2.0-8.0); NEUTROPHILS # 4.4 10^3/uL (1.5-8.5); NEUTROPHILS % 67.1 % (36.0-66.0); PLATELET COUNT, AUTOMATED 406 10^3/uL (150-450); RED BLOOD COUNT 3.72 10^6/uL (4.00-5.40); WHITE BLOOD COUNT 6.6 10^3/uL (4.0-10.0)
[2023-05-29 06:00] VITALS: BP 118/75; TEMP 98.8; O2SAT 99
[2023-05-29 06:13] LABS: BLOOD UREA NITROGEN 8 MG/DL (9-23); CALCIUM LEVEL 8.8 MG/DL (8.5-10.1); CARBON DIOXIDE LEVEL 26 MMOL/L (20-31); CHLORIDE LEVEL 99 MMOL/L (98-107); CREATININE FOR GFR 0.39 MG/DL (0.55-1.30); GLOMERULAR FILTRATION RATE > 60.0 (>51); GLUCOSE, FASTING 92 MG/DL (60-100); POTASSIUM SERUM 4.9 MMOL/L (3.5-5.1); SODIUM LEVEL 131 MMOL/L (136-145)
[2023-05-29] MEDS ORDERED: MORPHINE 30 MG TAB **MSIR PO PRN (07:55)
[2023-05-29] MEDS ORDERED: PERCOCET 5MG/325MG TAB PO PRN (07:55)
[2023-05-29] MEDS: SODIUM CHLORIDE 1 GM TAB PO SCH (08:09)
[2023-05-29] MEDS: GABAPENTIN 400MG CAP PO SCH (08:09)
[2023-05-29] MEDS: DOCUSATE SODIUM 100MG CAPSULE PO SCH (08:10)
[2023-05-29] MEDS: MORPHINE 15 MG SA TAB PO SCH ×2 (08:10→08:20)
[2023-05-29] MEDS ORDERED: SODI1TAB6 PO (08:25)
[2023-05-29] MEDS ORDERED: SENN-23 PO (08:25)
[2023-05-29] MEDS ORDERED: OXYC1TAB23 PO (08:25)
[2023-05-29] MEDS ORDERED: GABA-284 PO (08:25)
[2023-05-29] MEDS ORDERED: MORP15TASA PO (08:25)
[2023-05-29] MEDS ORDERED: ENOXAPARIN 30MG/0.3ML SYRINGE (J1650 PER 10MG) SC SCH (09:00)
[2023-05-31] MEDS ORDERED: PROC10TA5 PO (13:15)
[2023-05-31] MEDS ORDERED: GABA-284 PO (13:15)
== END 2023-05-29 10:25 | disposition home or self-care (01) | DRG 861 ==
LOC: M ED 10:50 → M MS5PR 15:16 → ENRESERV 16:22 → M MS5PR 17:55
PROVIDERS: ADMIT Internal Medicine Nephrology; ATTEND Internal Medicine Nephrology
DX: G89.3 Neoplasm related pain (acute) (chronic) (principal); C56.9 Malignant neoplasm of unspecified ovary; C78.7 Secondary malignant neoplasm of liver and intrahepatic bile duct; C78.00 Secondary malignant neoplasm of unspecified lung; E87.1 Hypo-osmolality and hyponatremia; R74.01 Elevation of levels of liver transaminase levels; G43.909 Migraine, unspecified, not intractable, without status migrainosus; E78.5 Hyperlipidemia, unspecified; R73.01 Impaired fasting glucose; D64.9 Anemia, unspecified; Z79.899 Other long term (current) drug therapy; Z20.822 Contact with and (suspected) exposure to COVID-19

== ENCOUNTER → 2023-06-14 | Outpatient (CLI) | payer OTHER ==
[~2023-06-14] MED LIST changes: +GABA-284 PO; +LIDOCAINE 1% MDV 20ML VIAL As Ordered ONE; +LIDOCAINE W/EPINEPHRINE 1% 20ML VIAL As Ordered ONE; +META28PO PO; +MIDAZOLAM INJ 2MG/2ML VIAL As Ordered ONE; +MORP15TASA PO; +SENN-23 PO; +SENN8.6T28 PO; +SODI1TAB6 PO; +ceFAZolin 2 GM/D5W 50 ML IV BAG As Ordered ONE; +fentaNYL 100 MCG/2 ML INJECTION As Ordered ONE
[2023-06-14 12:25] VITALS: TEMP 99.2
[2023-06-14 14:21] VITALS: BP 131/75; O2SAT 100
== END ==
LOC: M IRPRO 12:09
PROVIDERS: ATTEND Internal Medicine Medical Oncology
DX: C56.9 Malignant neoplasm of unspecified ovary (principal)
CPT/HCPCS: 36561; 99152; 99153; J0690; J2250; J3010

== ENCOUNTER → 2023-06-15 | Outpatient (CLI) | payer OTHER ==
[~2023-06-15] VITALS: Ht 157.5 cm; Wt 48.2 kg
[~2023-06-15] MED LIST changes: -LIDOCAINE 1% MDV 20ML VIAL As Ordered ONE; -LIDOCAINE W/EPINEPHRINE 1% 20ML VIAL As Ordered ONE; -MIDAZOLAM INJ 2MG/2ML VIAL As Ordered ONE; +POTA-298 PO; -ceFAZolin 2 GM/D5W 50 ML IV BAG As Ordered ONE; -fentaNYL 100 MCG/2 ML INJECTION As Ordered ONE
[2023-06-15 10:34] VITALS: BP 124/78; O2SAT 100
== END ==
LOC: M PAL 07:56
PROVIDERS: ATTEND Nurse Practitioner Adult Health
DX: G89.3 Neoplasm related pain (acute) (chronic) (principal); C56.9 Malignant neoplasm of unspecified ovary; C78.7 Secondary malignant neoplasm of liver and intrahepatic bile duct; C78.00 Secondary malignant neoplasm of unspecified lung; G43.909 Migraine, unspecified, not intractable, without status migrainosus; K59.00 Constipation, unspecified; R53.83 Other fatigue; R06.09 Other forms of dyspnea; R63.0 Anorexia; D64.9 Anemia, unspecified; Z51.5 Encounter for palliative care; Z79.891 Long term (current) use of opiate analgesic; Z79.899 Other long term (current) drug therapy

== ENCOUNTER 2023-07-08 10:59 | Inpatient (IN) | payer OTHER ==
[~2023-07-08] VITALS: Ht 157.5 cm; Wt 46.8 kg
[2023-07-08] MEDS: SODIUM CHLORIDE 0.9% INJ 10 ML SYR IV SCH (09:00)
[~2023-07-08 10:59] MED LIST changes: +AUGM500T34 PO; +FLUC100T3 PO; +LEVO1TAB40 PO; +METR-265 PO
[2023-07-08] MEDS ORDERED: NS 1,000 ML IV SCH (12:55)
[2023-07-08] MEDS ORDERED: NS 500 ML IV ONE (12:55)
[2023-07-08 13:11] LABS: BASO # 0.1 10^3/uL (0.0-0.2); BASO % 0.6 % (0.0-1.0); EOS # 0.3 10^3/uL (0.0-0.5); EOS % 3.1 % (0.0-3.0); HEMATOCRIT 29.8 % (36.0-47.0); HEMOGLOBIN 9.6 g/dl (12.0-15.5); LYMPH # 1.7 10^3/uL (1.5-5.0); LYMPH % 19.9 % (24.0-44.0); MEAN CORPUSCULAR HEMOGLOBIN 27.4 pg (27.0-33.0); MEAN CORPUSCULAR HGB CONC 32.2 g/dl (32.0-36.5); MEAN CORPUSCULAR VOLUME 84.9 fl (80.0-96.0); MONO # 0.6 10^3/uL (0.0-0.8); MONO % 6.9 % (2.0-8.0); PLATELET COUNT, AUTOMATED 479 10^3/uL (150-450); RED BLOOD COUNT 3.51 10^6/uL (4.00-5.40); WHITE BLOOD COUNT 8.7 10^3/uL (4.0-10.0)
[2023-07-08] MEDS ORDERED: ONDANSETRON 4MG 2ML VIAL IV ONE (13:15)
[2023-07-08 13:33] LABS: LIPASE 23 U/L (12-53)
[2023-07-08 13:36] LABS: ALBUMIN 1.9 G/DL (3.2-5.2); ALKALINE PHOSPHATASE 495 U/L (46-116); ALT/SGPT 19 U/L (7.0-40); AST/SGOT 71 U/L (<34); BILIRUBIN,DIRECT 0.5 MG/DL (<0.4); BILIRUBIN,TOTAL 0.8 MG/DL (0.3-1.2); BLOOD UREA NITROGEN 9 MG/DL (9-23); CARBON DIOXIDE LEVEL 25 MMOL/L (20-31); CHLORIDE LEVEL 94 MMOL/L (98-107); CREATININE FOR GFR 0.27 MG/DL (0.55-1.30); GLOMERULAR FILTRATION RATE > 60.0 (>51); GLUCOSE, FASTING 90 MG/DL (60-100); MAGNESIUM LEVEL 1.7 MG/DL (1.8-2.4); POTASSIUM SERUM 4.2 MMOL/L (3.5-5.1); SODIUM LEVEL 128 MMOL/L (136-145)
[2023-07-08] MEDS ORDERED: MED REC IN PROGRESS XX SCH (15:10)
[2023-07-08] MEDS ORDERED: FLUC100T3 PO (15:28)
[2023-07-08] MEDS ORDERED: AUGM500T34 PO (15:33)
[2023-07-08] MEDS ORDERED: ERGO500029 PO (15:35)
[2023-07-08] MEDS ORDERED: GABA-284 PO (15:36)
[2023-07-08] MEDS ORDERED: MORP-69 PO (15:37)
[2023-07-08] MEDS ORDERED: PROC10TA5 PO (15:42)
[2023-07-08] MEDS ORDERED: HOME MED LIST COMPLETE! XX SCH (15:45)
[2023-07-08] MEDS ORDERED: MAG SULF 1GM/100ML (MAG RUN) 1 GM in IV 1 EA IV ONE (16:15)
[2023-07-08] MEDS ORDERED: ONDANSETRON 4MG ORAL DISINTEGRATING TAB PO PRN (16:15)
[2023-07-08] MEDS ORDERED: ISOVUE-370 76% 100ML VIAL As Ordered ONE (16:20)
[2023-07-08 16:44] LABS: RSV AMPLIFICATION NEGATIVE (NEGATIVE)
[2023-07-08 17:54] VITALS: BP 138/82; TEMP 100.1; O2SAT 97
[2023-07-08] MEDS ORDERED: D5W/0.9% SODIUM CHLORIDE 1,000 ML IV SCH (19:45)
[2023-07-08] MEDS ORDERED: AMOX875T2 PO (19:46)
[2023-07-08 20:00] VITALS: BP 138/93; TEMP 99.8; O2SAT 94
[2023-07-08] MEDS: PIPERACILLIN/TAZOBACTAM SOD 3.375 GM in D5W MINI-BAG PLUS 50 ML IV SCH (20:18)
[2023-07-08] MEDS: GABAPENTIN 400MG CAP PO SCH (20:19)
[2023-07-08] MEDS: MORPHINE 15 MG SA TAB PO SCH (20:20)
[2023-07-08] MEDS ORDERED: AUGMENTIN 875 MG TAB PO SCH (21:00)
[2023-07-08] MEDS ORDERED: AUGMENTIN 500MG TAB PO SCH (21:00)
[2023-07-08] MEDS ORDERED: VANCOMYCIN HCL 1,000 MG, VIAL MATE ADAPTER 1 EACH in D5W 250 ML IV SCH (23:00)
[2023-07-09] MEDS: PIPERACILLIN/TAZOBACTAM SOD 3.375 GM in D5W MINI-BAG PLUS 50 ML IV SCH ×4 (02:50→21:05)
[2023-07-09 05:54] LABS: BASO % 0.5 % (0.0-1.0); EOS # 0.6 10^3/uL (0.0-0.5); EOS % 8.3 % (0.0-3.0); HEMATOCRIT 27.4 % (36.0-47.0); HEMOGLOBIN 8.8 g/dl (12.0-15.5); LYMPH # 1.5 10^3/uL (1.5-5.0); LYMPH % 20.4 % (24.0-44.0); MEAN CORPUSCULAR HEMOGLOBIN 27.4 pg (27.0-33.0); MEAN CORPUSCULAR HGB CONC 32.1 g/dl (32.0-36.5); MEAN CORPUSCULAR VOLUME 85.4 fl (80.0-96.0); MONO # 0.6 10^3/uL (0.0-0.8); MONO % 7.9 % (2.0-8.0); NEUTROPHILS # 4.6 10^3/uL (1.5-8.5); PLATELET COUNT, AUTOMATED 408 10^3/uL (150-450); RED BLOOD COUNT 3.21 10^6/uL (4.00-5.40); WHITE BLOOD COUNT 7.5 10^3/uL (4.0-10.0)
[2023-07-09 06:00] VITALS: BP 135/91; TEMP 99.5; O2SAT 99
[2023-07-09 06:16] LABS: BLOOD UREA NITROGEN 6 MG/DL (9-23); CALCIUM LEVEL 8.2 MG/DL (8.5-10.1); CARBON DIOXIDE LEVEL 22 MMOL/L (20-31); CHLORIDE LEVEL 97 MMOL/L (98-107); CREATININE FOR GFR 0.34 MG/DL (0.55-1.30); GLOMERULAR FILTRATION RATE > 60.0 (>51); GLUCOSE, FASTING 98 MG/DL (60-100); POTASSIUM SERUM 4.1 MMOL/L (3.5-5.1); SODIUM LEVEL 129 MMOL/L (136-145)
[2023-07-09] MEDS ORDERED: VANCOMYCIN HCL 750 MG, VIAL MATE ADAPTER 1 EACH in D5W 250 ML IV SCH (07:00)
[2023-07-09] MEDS: ENOXAPARIN 30MG/0.3ML SYRINGE (J1650 PER 10MG) SC SCH (08:14)
[2023-07-09] MEDS: GABAPENTIN 400MG CAP PO SCH ×3 (08:15→21:04)
[2023-07-09] MEDS: SODIUM CHLORIDE 0.9% INJ 10 ML SYR IV SCH (08:15)
[2023-07-09] MEDS: FLUCONAZOLE 100 MG TAB PO SCH (08:15)
[2023-07-09] MEDS: MORPHINE 15 MG SA TAB PO SCH ×2 (08:16→21:05)
[2023-07-09] MEDS ORDERED: ENOXAPARIN 40MG/0.4ML SYRINGE (J1650 PER 10MG) SC SCH (09:00)
[2023-07-09 09:01] VITALS: BP 131/86; TEMP 100; O2SAT 99
[2023-07-09] MEDS ORDERED: MORPHINE 4 MG/ML 1ML VIAL IV ONE (09:05)
[2023-07-09] MEDS ORDERED: PILL CUTTER 1 EACH XX PRN (09:15)
[2023-07-09] MEDS ORDERED: MORPHINE 30 MG TAB **MSIR PO PRN (11:00)
[2023-07-09] MEDS: MORPHINE 4 MG/ML 1ML VIAL IV PRN ×2 (13:41→17:56)
[2023-07-09] MEDS: ONDANSETRON 4MG 2ML VIAL IV PRN ×2 (13:41→21:05)
[2023-07-09 14:00] VITALS: BP 141/94; TEMP 99.5; O2SAT 98
[2023-07-09] MEDS: VANCOMYCIN HCL 750 MG, VIAL MATE ADAPTER 1 EACH in D5W 250 ML IV SCH ×2 (15:39→23:04)
[2023-07-09] MEDS ORDERED: LIDOCAINE 1% MDV 20ML VIAL As Ordered ONE (15:55)
[2023-07-09] MEDS ORDERED: FLEET ENEMA PR ONE (16:30)
[2023-07-09] MEDS: PROCHLORPERAZINE 10MG 2ML VIAL IV PRN (17:56)
[2023-07-09] MEDS: SODIUM CHLORIDE 0.9% INJ 10 ML SYR IV PRN (17:56)
[2023-07-09] MEDS: D5W/0.9% SODIUM CHLORIDE 1,000 ML IV SCH (18:25)
[2023-07-09] MEDS: PANTOPRAZOLE 40MG VIAL IV SCH (18:28)
[2023-07-09 21:05] VITALS: BP 143/95; TEMP 99.6; O2SAT 98
[2023-07-09] MEDS: KETOROLAC 30 MG/ML 1ML VIAL IV PRN (23:05)
[2023-07-10] MEDS: PIPERACILLIN/TAZOBACTAM SOD 3.375 GM in D5W MINI-BAG PLUS 50 ML IV SCH ×4 (03:24→20:09)
[2023-07-10 05:28] VITALS: BP 144/95; TEMP 98.1; O2SAT 98
[2023-07-10 06:31] LABS: HEMATOCRIT 25.8 % (36.0-47.0); HEMOGLOBIN 8.2 g/dl (12.0-15.5); MEAN CORPUSCULAR HEMOGLOBIN 27.3 pg (27.0-33.0); MEAN CORPUSCULAR HGB CONC 31.8 g/dl (32.0-36.5); PLATELET COUNT, AUTOMATED 410 10^3/uL (150-450); WHITE BLOOD COUNT 8.8 10^3/uL (4.0-10.0)
[2023-07-10] MEDS: VANCOMYCIN HCL 750 MG, VIAL MATE ADAPTER 1 EACH in D5W 250 ML IV SCH ×2 (06:40→18:13)
[2023-07-10 06:55] LABS: BLOOD UREA NITROGEN 7 MG/DL (9-23); CALCIUM LEVEL 8.3 MG/DL (8.5-10.1); CARBON DIOXIDE LEVEL 23 MMOL/L (20-31); CHLORIDE LEVEL 96 MMOL/L (98-107); CREATININE FOR GFR 0.41 MG/DL (0.55-1.30); GLOMERULAR FILTRATION RATE > 60.0 (>51); GLUCOSE, FASTING 87 MG/DL (60-100); POTASSIUM SERUM 3.7 MMOL/L (3.5-5.1); SODIUM LEVEL 130 MMOL/L (136-145)
[2023-07-10 07:21] LABS: ATYPICAL LYMPH 14 % (0-5); BASOPHILS 1 % (0-1); EOSINOPHILS 13 % (0-3); LYMPHOCYTES 12 % (16-44); MONOCYTES 5 % (0-5); NEUTROPHILS 55 % (28-66)
[2023-07-10 07:22] LABS: ANISOCYTOSIS 4+; HYPOCHROMASIA 1+
[2023-07-10 07:23] LABS: PLATELET ESTIMATE NORMAL (NORMAL)
[2023-07-10] MEDS: SODIUM CHLORIDE 0.9% INJ 10 ML SYR IV SCH (08:47)
[2023-07-10] MEDS: GABAPENTIN 400MG CAP PO SCH ×3 (09:05→20:06)
[2023-07-10] MEDS: MORPHINE 15 MG SA TAB PO SCH ×2 (09:06→20:07)
[2023-07-10] MEDS: PANTOPRAZOLE 40MG VIAL IV SCH (09:07)
[2023-07-10] MEDS: FLUCONAZOLE 100 MG TAB PO SCH (09:07)
[2023-07-10] MEDS: ENOXAPARIN 30MG/0.3ML SYRINGE (J1650 PER 10MG) SC SCH (09:07)
[2023-07-10] MEDS: PROCHLORPERAZINE 10MG 2ML VIAL IV PRN ×2 (11:57→22:30)
[2023-07-10] MEDS: MORPHINE 4 MG/ML 1ML VIAL IV PRN (11:58)
[2023-07-10 13:45] VITALS: BP 142/95; TEMP 99.8; O2SAT 99
[2023-07-10] MEDS: SENOKOT S TAB PO SCH ×2 (13:55→20:06)
[2023-07-10] MEDS: FLEET ENEMA PR PRN (13:56)
[2023-07-10] MEDS: KETOROLAC 30 MG/ML 1ML VIAL IV PRN ×2 (13:56→22:31)
[2023-07-10] MEDS: LIDOCAINE 5% (LIDODERM) PATCH TD SCH (13:56)
[2023-07-10] MEDS: D5W/0.9% SODIUM CHLORIDE 1,000 ML IV SCH (15:21)
[2023-07-10] MEDS: ONDANSETRON 4MG 2ML VIAL IV PRN (15:24)
[2023-07-10 21:25] VITALS: BP 143/95; TEMP 100.2; O2SAT 99
[2023-07-10 22:58] VITALS: TEMP 100.9
[2023-07-11 00:19] VITALS: TEMP 100.7
[2023-07-11] MEDS: ACETAMINOPHEN TAB 650MG DOSE (2X325MG) PO PRN (00:19)
[2023-07-11] MEDS: MOM 30ML SUSPENSION UDC PO SCH ×2 (00:35→20:39)
[2023-07-11] MEDS ORDERED: BISACODYL 10MG SUPP PR PRN (00:35)
[2023-07-11 01:07] LABS: HEMATOCRIT 26.2 % (36.0-47.0); HEMOGLOBIN 8.1 g/dl (12.0-15.5); MEAN CORPUSCULAR HEMOGLOBIN 26.9 pg (27.0-33.0); MEAN CORPUSCULAR HGB CONC 30.9 g/dl (32.0-36.5); PLATELET COUNT, AUTOMATED 408 10^3/uL (150-450); RED BLOOD COUNT 3.01 10^6/uL (4.00-5.40); WHITE BLOOD COUNT 13.7 10^3/uL (4.0-10.0)
[2023-07-11 01:34] LABS: ALBUMIN 1.7 G/DL (3.2-5.2); ALKALINE PHOSPHATASE 479 U/L (46-116); ALT/SGPT 26 U/L (7.0-40); AST/SGOT 64 U/L (<34); BLOOD UREA NITROGEN 10 MG/DL (9-23); CALCIUM LEVEL 8.1 MG/DL (8.5-10.1); CARBON DIOXIDE LEVEL 22 MMOL/L (20-31); CHLORIDE LEVEL 94 MMOL/L (98-107); CREATININE FOR GFR 0.96 MG/DL (0.55-1.30); GLOMERULAR FILTRATION RATE > 60.0 (>51); GLUCOSE, FASTING 129 MG/DL (60-100); MAGNESIUM LEVEL 1.8 MG/DL (1.8-2.4); POTASSIUM SERUM 3.6 MMOL/L (3.5-5.1); SODIUM LEVEL 127 MMOL/L (136-145); TOTAL PROTEIN 6.6 G/DL (5.7-8.2)
[2023-07-11] MEDS ORDERED: SODIUM CHLORIDE 0.9% 1000ML IV STA (01:51)
[2023-07-11 01:53] VITALS: BP 148/88
[2023-07-11] MEDS ORDERED: NS 1,000 ML IV SCH (03:40)
[2023-07-11 03:58] VITALS: BP 135/90; TEMP 99.3; O2SAT 98
[2023-07-11] MEDS: D5W/0.9% SODIUM CHLORIDE 1,000 ML IV SCH ×2 (04:39→18:42)
[2023-07-11] MEDS: PIPERACILLIN/TAZOBACTAM SOD 3.375 GM in D5W MINI-BAG PLUS 50 ML IV SCH ×4 (04:40→20:38)
[2023-07-11] MEDS: VANCOMYCIN HCL 750 MG, VIAL MATE ADAPTER 1 EACH in D5W 250 ML IV SCH (06:22)
[2023-07-11 06:28] LABS: BASO # 0.1 10^3/uL (0.0-0.2); BASO % 0.3 % (0.0-1.0); EOS # 0.8 10^3/uL (0.0-0.5); HEMATOCRIT 23.7 % (36.0-47.0); HEMOGLOBIN 7.5 g/dl (12.0-15.5); LYMPH # 1.4 10^3/uL (1.5-5.0); LYMPH % 9.3 % (24.0-44.0); MEAN CORPUSCULAR HEMOGLOBIN 27.5 pg (27.0-33.0); MEAN CORPUSCULAR HGB CONC 31.6 g/dl (32.0-36.5); MEAN CORPUSCULAR VOLUME 86.8 fl (80.0-96.0); MONO # 0.8 10^3/uL (0.0-0.8); MONO % 5.6 % (2.0-8.0); NEUTROPHILS # 11.9 10^3/uL (1.5-8.5); NEUTROPHILS % 78.9 % (36.0-66.0); PLATELET COUNT, AUTOMATED 352 10^3/uL (150-450); RED BLOOD COUNT 2.73 10^6/uL (4.00-5.40); WHITE BLOOD COUNT 15.1 10^3/uL (4.0-10.0)
[2023-07-11 06:45] LABS: BLOOD UREA NITROGEN 10 MG/DL (9-23); CALCIUM LEVEL 7.7 MG/DL (8.5-10.1); CARBON DIOXIDE LEVEL 20 MMOL/L (20-31); CHLORIDE LEVEL 97 MMOL/L (98-107); CREATININE FOR GFR 0.96 MG/DL (0.55-1.30); GLOMERULAR FILTRATION RATE > 60.0 (>51); GLUCOSE, FASTING 96 MG/DL (60-100); POTASSIUM SERUM 3.5 MMOL/L (3.5-5.1); SODIUM LEVEL 128 MMOL/L (136-145)
[2023-07-11] MEDS: SODIUM CHLORIDE 0.9% INJ 10 ML SYR IV SCH (08:28)
[2023-07-11] MEDS: FLUCONAZOLE 100 MG TAB PO SCH (09:35)
[2023-07-11] MEDS: PANTOPRAZOLE 40MG VIAL IV SCH (09:36)
[2023-07-11] MEDS: SENOKOT S TAB PO SCH ×2 (09:36→20:38)
[2023-07-11] MEDS: LIDOCAINE 5% (LIDODERM) PATCH TD SCH (09:36)
[2023-07-11] MEDS: GABAPENTIN 400MG CAP PO SCH ×3 (09:36→20:40)
[2023-07-11] MEDS: MORPHINE 15 MG SA TAB PO SCH ×2 (09:36→20:39)
[2023-07-11] MEDS: ENOXAPARIN 30MG/0.3ML SYRINGE (J1650 PER 10MG) SC SCH (09:37)
[2023-07-11] MEDS: FLEET ENEMA PR PRN (15:29)
[2023-07-11 16:00] VITALS: BP 126/84; TEMP 99; O2SAT 98
[2023-07-11 20:35] VITALS: BP 131/85; TEMP 99; O2SAT 98
[2023-07-12] MEDS: PIPERACILLIN/TAZOBACTAM SOD 3.375 GM in D5W MINI-BAG PLUS 50 ML IV SCH ×4 (02:32→20:03)
[2023-07-12] MEDS: D5W/0.9% SODIUM CHLORIDE 1,000 ML IV SCH ×2 (02:35→10:22)
[2023-07-12 05:58] VITALS: BP 131/88; TEMP 99.1; O2SAT 98
[2023-07-12] MEDS ORDERED: VANCOMYCIN HCL 750 MG, VIAL MATE ADAPTER 1 EACH in D5W 250 ML IV SCH (06:00)
[2023-07-12 06:14] LABS: BASO % 0.2 % (0.0-1.0); EOS # 1.1 10^3/uL (0.0-0.5); EOS % 7.3 % (0.0-3.0); HEMATOCRIT 23.2 % (36.0-47.0); HEMOGLOBIN 7.5 g/dl (12.0-15.5); LYMPH # 1.9 10^3/uL (1.5-5.0); LYMPH % 12.3 % (24.0-44.0); MEAN CORPUSCULAR HEMOGLOBIN 28.3 pg (27.0-33.0); MEAN CORPUSCULAR HGB CONC 32.3 g/dl (32.0-36.5); MEAN CORPUSCULAR VOLUME 87.5 fl (80.0-96.0); MONO % 6.3 % (2.0-8.0); NEUTROPHILS # 11.2 10^3/uL (1.5-8.5); NEUTROPHILS % 72.9 % (36.0-66.0); PLATELET COUNT, AUTOMATED 358 10^3/uL (150-450); RED BLOOD COUNT 2.65 10^6/uL (4.00-5.40); WHITE BLOOD COUNT 15.4 10^3/uL (4.0-10.0)
[2023-07-12 06:32] LABS: CALCIUM LEVEL 8.2 MG/DL (8.5-10.1); CREATININE FOR GFR 1.3 MG/DL (0.55-1.30); GLOMERULAR FILTRATION RATE 45.3 (>51); POTASSIUM SERUM 3.3 MMOL/L (3.5-5.1)
[2023-07-12] MEDS: SODIUM CHLORIDE 0.9% INJ 10 ML SYR IV SCH (09:00)
[2023-07-12] MEDS: LIDOCAINE 5% (LIDODERM) PATCH TD SCH (09:28)
[2023-07-12] MEDS: ENOXAPARIN 30MG/0.3ML SYRINGE (J1650 PER 10MG) SC SCH (09:29)
[2023-07-12] MEDS: MORPHINE 15 MG SA TAB PO SCH ×2 (09:30→20:02)
[2023-07-12] MEDS: FLUCONAZOLE 100 MG TAB PO SCH (09:30)
[2023-07-12] MEDS: SENOKOT S TAB PO SCH ×2 (09:30→20:03)
[2023-07-12] MEDS: GABAPENTIN 400MG CAP PO SCH ×3 (09:30→20:02)
[2023-07-12] MEDS: PANTOPRAZOLE 40MG VIAL IV SCH (09:30)
[2023-07-12 12:37] LABS: ALBUMIN 1.4 G/DL (3.2-5.2); BILIRUBIN,DIRECT 0.7 MG/DL (<0.4); TOTAL PROTEIN 5.8 G/DL (5.7-8.2)
[2023-07-12] MEDS ORDERED: VANCOMYCIN HCL 500 MG in D5W MINI-BAG PLUS 100 ML IV SCH (18:00)
[2023-07-12] MEDS: MOM 30ML SUSPENSION UDC PO SCH (20:01)
[2023-07-12 20:28] VITALS: BP 128/86; TEMP 97; O2SAT 98
[2023-07-13] MEDS: PIPERACILLIN/TAZOBACTAM SOD 3.375 GM in D5W MINI-BAG PLUS 50 ML IV SCH ×2 (03:04→08:49)
[2023-07-13 06:00] VITALS: BP 148/99; TEMP 99.7; O2SAT 95
[2023-07-13 06:30] LABS: BASO # 0.1 10^3/uL (0.0-0.2); BASO % 0.3 % (0.0-1.0); EOS # 1.1 10^3/uL (0.0-0.5); EOS % 6.7 % (0.0-3.0); HEMATOCRIT 24.2 % (36.0-47.0); HEMOGLOBIN 7.6 g/dl (12.0-15.5); LYMPH # 1.8 10^3/uL (1.5-5.0); LYMPH % 11.6 % (24.0-44.0); MEAN CORPUSCULAR HEMOGLOBIN 27.6 pg (27.0-33.0); MEAN CORPUSCULAR HGB CONC 31.4 g/dl (32.0-36.5); MONO # 0.8 10^3/uL (0.0-0.8); MONO % 4.7 % (2.0-8.0); NEUTROPHILS % 75.6 % (36.0-66.0); PLATELET COUNT, AUTOMATED 357 10^3/uL (150-450); RED BLOOD COUNT 2.75 10^6/uL (4.00-5.40); WHITE BLOOD COUNT 15.9 10^3/uL (4.0-10.0)
[2023-07-13 07:04] LABS: CALCIUM LEVEL 8.6 MG/DL (8.5-10.1); CREATININE FOR GFR 1.32 MG/DL (0.55-1.30); GLOMERULAR FILTRATION RATE 44.5 (>51); POTASSIUM SERUM 3.7 MMOL/L (3.5-5.1)
[2023-07-13] MEDS: SENOKOT S TAB PO SCH (08:47)
[2023-07-13] MEDS: MORPHINE 15 MG SA TAB PO SCH ×2 (08:47→20:54)
[2023-07-13] MEDS: FLUCONAZOLE 100 MG TAB PO SCH (08:47)
[2023-07-13] MEDS: ENOXAPARIN 30MG/0.3ML SYRINGE (J1650 PER 10MG) SC SCH (08:48)
[2023-07-13] MEDS: LIDOCAINE 5% (LIDODERM) PATCH TD SCH (08:48)
[2023-07-13] MEDS: GABAPENTIN 400MG CAP PO SCH ×3 (08:48→20:54)
[2023-07-13] MEDS: PANTOPRAZOLE 40MG VIAL IV SCH (08:48)
[2023-07-13] MEDS: SODIUM CHLORIDE 0.9% INJ 10 ML SYR IV SCH ×2 (08:49→20:55)
[2023-07-13] MEDS: LR 1,000 ML IV SCH ×2 (10:23→20:53)
[2023-07-13] MEDS ORDERED: CALCIUM CARBONATE 500 MG CHEW U/D PO ONE (11:55)
[2023-07-13] MEDS ORDERED: MAALOX 30 ML SUSP *UDC PO ONE (11:55)
[2023-07-13] MEDS: SUCRALFATE SUSP 1GM/10ML UD PO SCH ×2 (12:07→16:47)
[2023-07-13] MEDS: LACTOBACILLUS ACIDOPHILUS CAP (BACID) PO SCH ×2 (12:07→16:48)
[2023-07-13] MEDS: FLEET ENEMA PR PRN (12:07)
[2023-07-13] MEDS: LINEZOLID 600MG TABLET (ZYVOX) PO SCH (12:07)
[2023-07-13 14:00] VITALS: BP 147/96; TEMP 96.9; O2SAT 99
[2023-07-13 20:28] VITALS: BP 145/95; TEMP 97.7; O2SAT 98
[2023-07-13] MEDS: MOM 30ML SUSPENSION UDC PO SCH (20:53)
[2023-07-13] MEDS: ONDANSETRON 4MG 2ML VIAL IV PRN (20:54)
[2023-07-13] MEDS: SODIUM CHLORIDE 0.9% INJ 10 ML SYR IV PRN (20:56)
[2023-07-14] VITALS (11 sets, daily range): BP systolic 140–152; BP diastolic 94–99; TEMP 96.4–98.8; O2SAT 97–100
[2023-07-14] MEDS: SUCRALFATE SUSP 1GM/10ML UD PO SCH ×5 (00:05→23:08)
[2023-07-14] MEDS: SENOKOT S TAB PO SCH ×3 (00:05→23:07)
[2023-07-14] MEDS: LINEZOLID 600MG TABLET (ZYVOX) PO SCH ×2 (00:05→08:45)
[2023-07-14] MEDS: CALCIUM CARBONATE 500 MG CHEW U/D PO PRN (01:23)
[2023-07-14] MEDS: ONDANSETRON 4MG 2ML VIAL IV PRN ×2 (05:10→14:38)
[2023-07-14] MEDS: LR 1,000 ML IV SCH (05:15)
[2023-07-14 06:12] LABS: BASO # 0.1 10^3/uL (0.0-0.2); BASO % 0.3 % (0.0-1.0); EOS # 0.9 10^3/uL (0.0-0.5); EOS % 5.6 % (0.0-3.0); HEMATOCRIT 24.2 % (36.0-47.0); HEMOGLOBIN 7.7 g/dl (12.0-15.5); LYMPH # 2.1 10^3/uL (1.5-5.0); LYMPH % 13.8 % (24.0-44.0); MEAN CORPUSCULAR HEMOGLOBIN 27.5 pg (27.0-33.0); MEAN CORPUSCULAR HGB CONC 31.8 g/dl (32.0-36.5); MEAN CORPUSCULAR VOLUME 86.4 fl (80.0-96.0); MONO # 0.7 10^3/uL (0.0-0.8); MONO % 4.8 % (2.0-8.0); NEUTROPHILS # 11.4 10^3/uL (1.5-8.5); NEUTROPHILS % 74.5 % (36.0-66.0); PLATELET COUNT, AUTOMATED 330 10^3/uL (150-450); WHITE BLOOD COUNT 15.3 10^3/uL (4.0-10.0)
[2023-07-14 06:46] LABS: CALCIUM LEVEL 8.7 MG/DL (8.5-10.1); CREATININE FOR GFR 1.29 MG/DL (0.55-1.30); GLOMERULAR FILTRATION RATE 45.7 (>51); POTASSIUM SERUM 3.4 MMOL/L (3.5-5.1)
[2023-07-14] MEDS: FLUCONAZOLE 100 MG TAB PO SCH (08:44)
[2023-07-14] MEDS: LACTOBACILLUS ACIDOPHILUS CAP (BACID) PO SCH ×3 (08:44→17:57)
[2023-07-14] MEDS: GABAPENTIN 400MG CAP PO SCH ×3 (08:44→23:06)
[2023-07-14] MEDS: MORPHINE 15 MG SA TAB PO SCH ×2 (08:44→23:06)
[2023-07-14] MEDS: ENOXAPARIN 30MG/0.3ML SYRINGE (J1650 PER 10MG) SC SCH (08:45)
[2023-07-14] MEDS: SODIUM CHLORIDE 0.9% INJ 10 ML SYR IV SCH (08:45)
[2023-07-14] MEDS: PANTOPRAZOLE 40MG VIAL IV SCH (08:45)
[2023-07-14] MEDS: LIDOCAINE 5% (LIDODERM) PATCH TD SCH (08:46)
[2023-07-14] MEDS ORDERED: KCL 40MEQ IN D5/0.45NS 1000ML 1,000 ML IV SCH (12:00)
[2023-07-14] MEDS ORDERED: dexAMETHasone 20MG/5ML VIAL IV ONE (14:00)
[2023-07-14] MEDS ORDERED: AMINO AC/ELECTROLYTE/DEX/CALC 1,000 ML IV SCH (18:00)
[2023-07-14] MEDS ORDERED: FAT EMULSION IV 250 ML IV ONE (18:00)
[2023-07-14 22:24] LABS: HEMATOCRIT 36.8 % (36.0-47.0); HEMOGLOBIN 12.2 g/dl (12.0-15.5)
[2023-07-14] MEDS: INSULIN LISPRO (NovoLOG) PER UNIT SC SCH (22:34)
[2023-07-14] MEDS: MOM 30ML SUSPENSION UDC PO SCH (23:04)
[2023-07-14] MEDS: LINEZOLID 600 MG in IV 1 EA IV SCH (23:07)
[2023-07-14] MEDS: SODIUM CHLORIDE 0.9% INJ 10 ML SYR IV PRN ×2 (23:08→23:46)
[2023-07-15] MEDS: INSULIN LISPRO (NovoLOG) PER UNIT SC SCH ×4 (00:01→18:00)
[2023-07-15] MEDS: SODIUM CHLORIDE 0.9% INJ 10 ML SYR IV PRN (01:45)
[2023-07-15 05:10] VITALS: BP 142/97; TEMP 98.4; O2SAT 97
[2023-07-15] MEDS: SUCRALFATE SUSP 1GM/10ML UD PO SCH ×3 (05:48→18:00)
[2023-07-15 05:51] LABS: BASO % 0.3 % (0.0-1.0); EOS % 0.2 % (0.0-3.0); HEMATOCRIT 38.9 % (36.0-47.0); HEMOGLOBIN 12.6 g/dl (12.0-15.5); LYMPH # 1.8 10^3/uL (1.5-5.0); MEAN CORPUSCULAR HGB CONC 32.4 g/dl (32.0-36.5); MEAN CORPUSCULAR VOLUME 86.4 fl (80.0-96.0); MONO # 0.2 10^3/uL (0.0-0.8); MONO % 1.5 % (2.0-8.0); NEUTROPHILS # 9.5 10^3/uL (1.5-8.5); NEUTROPHILS % 81.5 % (36.0-66.0); PLATELET COUNT, AUTOMATED 273 10^3/uL (150-450); WHITE BLOOD COUNT 11.7 10^3/uL (4.0-10.0)
[2023-07-15 06:20] LABS: CALCIUM LEVEL 8.5 MG/DL (8.5-10.1); CREATININE FOR GFR 1.14 MG/DL (0.55-1.30); GLOMERULAR FILTRATION RATE 52.7 (>51); POTASSIUM SERUM 4.5 MMOL/L (3.5-5.1)
[2023-07-15] MEDS: ONDANSETRON 4MG 2ML VIAL IV PRN (10:09)
[2023-07-15] MEDS: PANTOPRAZOLE 40MG VIAL IV SCH (10:11)
[2023-07-15] MEDS: SODIUM CHLORIDE 0.9% INJ 10 ML SYR IV SCH ×2 (10:16→18:00)
[2023-07-15] MEDS: LINEZOLID 600 MG in IV 1 EA IV SCH ×2 (10:16→22:03)
[2023-07-15] MEDS: ENOXAPARIN 30MG/0.3ML SYRINGE (J1650 PER 10MG) SC SCH (10:17)
[2023-07-15] MEDS: LACTOBACILLUS ACIDOPHILUS CAP (BACID) PO SCH ×3 (10:18→18:48)
[2023-07-15] MEDS: SENOKOT S TAB PO SCH ×2 (10:18→22:15)
[2023-07-15] MEDS: GABAPENTIN 400MG CAP PO SCH ×3 (10:18→22:12)
[2023-07-15] MEDS: MORPHINE 15 MG SA TAB PO SCH ×2 (10:19→22:06)
[2023-07-15] MEDS: FLUCONAZOLE 100 MG TAB PO SCH (10:19)
[2023-07-15] MEDS ORDERED: GABA-284 PO (10:20)
[2023-07-15] MEDS: LIDOCAINE 5% (LIDODERM) PATCH TD SCH (10:20)
[2023-07-15] MEDS: PROCHLORPERAZINE 10MG 2ML VIAL IV PRN (11:21)
[2023-07-15] MEDS ORDERED: ISOVUE-370 76% 100ML VIAL As Ordered ONE (11:37)
[2023-07-15 11:43] LABS: ABG BASE EXCESS -5.4 (-2.0-2.0); ABG HCO3 18.2 MMOL/L (22.0-26.0); ABG O2 SATURATION 95.2 % (95.0-99.0); ABG PARTIAL PRESSURE CO2 29.7 mmHg (35.0-45.0); ABG PARTIAL PRESSURE O2 79.9 mmHg (75.0-100.0); ABG TOTAL CO2 19.1 MMOL/L (22.0-29.0); ABG pH (ARTERIAL) 7.404 UNITS (7.350-7.450)
[2023-07-15] MEDS ORDERED: PIPERACILLIN/TAZOBACTAM SOD 4.5 GM in D5W MINI-BAG PLUS 50 ML IV SCH (11:50)
[2023-07-15 11:53] LABS: CK-MB VALUE MASS 2.1 NG/ML (<3.6)
[2023-07-15] MEDS ORDERED: FUROSEMIDE 20MG/2ML VIAL IV ONE (12:00)
[2023-07-15] MEDS ORDERED: IPRATROPIUM 0.5MG/ALBUTEROL 2.5MG INH SOL UD 3ML (DUONEB) NEB ONE (12:00)
[2023-07-15] MEDS ORDERED: NITROGLYCERIN 0.4MG SUBL TABLET SL STA (12:02)
[2023-07-15] MEDS ORDERED: NITROGLYCERIN 0.4MG SUBL TABLET SL PRN (12:05)
[2023-07-15] MEDS ORDERED: ASPIRIN 81MG CHEW TABLET PO ONE (12:10)
[2023-07-15] MEDS: SALIVA SUBSTITUTE(MOUTHKOTE) BTL MT SCH ×3 (12:21→21:00)
[2023-07-15 12:23] VITALS: BP 138/92; TEMP 98.4; O2SAT 97
[2023-07-15 12:46] LABS: CHOLESTEROL RISK RATIO 16.63 (<5); HDL CHOLESTEROL 9.2 MG/DL (>40); LDL CHOLESTEROL 95.6 MG/DL (<100); NON-HDL-C 143.8 MG/DL
[2023-07-15 12:51] VITALS: BP 141/90; TEMP 97.3; O2SAT 96
[2023-07-15] MEDS: PIPERACILLIN/TAZOBACTAM SOD 3.375 GM in D5W MINI-BAG PLUS 50 ML IV SCH ×2 (13:21→18:46)
[2023-07-15] MEDS: CARVedilol 6.25 MG TAB PO SCH ×2 (13:21→22:13)
[2023-07-15] MEDS: FUROSEMIDE 20MG/2ML VIAL IV SCH ×2 (13:22→18:46)
[2023-07-15] MEDS ORDERED: SODIUM CHLORIDE 0.9% INJ 10 ML SYR IV PRN (15:05)
[2023-07-15 16:00] VITALS: BP 132/90; TEMP 97.2; O2SAT 98
[2023-07-15] MEDS ORDERED: AMINO AC/ELECTROLYTE/DEX/CALC 1,000 ML IV SCH (18:00)
[2023-07-15] MEDS ORDERED: FAT EMULSION IV 250 ML IV ONE (18:00)
[2023-07-15 18:31] LABS: CK-MB VALUE MASS 1.7 NG/ML (<3.6)
[2023-07-15 18:32] LABS: MB/CK RELATIVE INDEX 9.44 (< OR =4)
[2023-07-15 20:00] VITALS: BP 127/87; TEMP 98.5; O2SAT 91
[2023-07-15] MEDS: MOM 30ML SUSPENSION UDC PO SCH (22:03)
[2023-07-15] MEDS: ATORVASTATIN 20 MG TAB PO SCH (22:22)
[2023-07-16] VITALS (9 sets, daily range): BP systolic 124–146; BP diastolic 76–100; TEMP 96.2–98.5; O2SAT 95–99
[2023-07-16] MEDS: PIPERACILLIN/TAZOBACTAM SOD 3.375 GM in D5W MINI-BAG PLUS 50 ML IV SCH ×2 (00:59→06:38)
[2023-07-16] MEDS: FUROSEMIDE 20MG/2ML VIAL IV SCH ×4 (01:00→18:58)
[2023-07-16 01:22] LABS: CK-MB VALUE MASS 1.2 NG/ML (<3.6)
[2023-07-16 01:23] LABS: CPK CREATINE PHOSPHOKINASE < 15 U/L (34-145)
[2023-07-16] MEDS: INSULIN LISPRO (NovoLOG) PER UNIT SC SCH ×4 (06:00→18:00)
[2023-07-16] MEDS: SUCRALFATE SUSP 1GM/10ML UD PO SCH ×5 (06:00→23:40)
[2023-07-16] MEDS: SODIUM CHLORIDE 0.9% INJ 10 ML SYR IV SCH ×2 (06:43→18:57)
[2023-07-16] MEDS ORDERED: ASPIRIN 81MG CHEW TABLET PO SCH (09:00)
[2023-07-16 09:44] LABS: MB/CK RELATIVE INDEX 3.57 (< OR =4)
[2023-07-16] MEDS: MORPHINE 15 MG SA TAB PO SCH ×2 (09:50→23:25)
[2023-07-16] MEDS: PANTOPRAZOLE 40MG VIAL IV SCH (09:50)
[2023-07-16] MEDS: AUGMENTIN 875 MG TAB PO SCH ×2 (09:51→23:24)
[2023-07-16] MEDS: LACTOBACILLUS ACIDOPHILUS CAP (BACID) PO SCH ×3 (09:51→18:56)
[2023-07-16] MEDS: ENOXAPARIN 30MG/0.3ML SYRINGE (J1650 PER 10MG) SC SCH (09:51)
[2023-07-16] MEDS: SENOKOT S TAB PO SCH ×2 (09:52→21:00)
[2023-07-16] MEDS: CARVedilol 6.25 MG TAB PO SCH ×2 (09:52→23:23)
[2023-07-16] MEDS: GABAPENTIN 400MG CAP PO SCH ×3 (09:53→23:24)
[2023-07-16] MEDS: SALIVA SUBSTITUTE(MOUTHKOTE) BTL MT SCH ×4 (09:54→21:00)
[2023-07-16] MEDS: LIDOCAINE 5% (LIDODERM) PATCH TD SCH (09:54)
[2023-07-16] MEDS ORDERED: REMDESIVIR 200 MG in NS 250 ML IV ONE (12:00)
[2023-07-16] MEDS: FLUCONAZOLE 100 MG TAB PO SCH (12:07)
[2023-07-16] MEDS: ACETAMINOPHEN TAB 650MG DOSE (2X325MG) PO PRN (12:11)
[2023-07-16 12:36] LABS: BASO % 0.1 % (0.0-1.0); EOS # 0.1 10^3/uL (0.0-0.5); EOS % 0.5 % (0.0-3.0); HEMATOCRIT 40.1 % (36.0-47.0); HEMOGLOBIN 12.9 g/dl (12.0-15.5); LYMPH # 1.5 10^3/uL (1.5-5.0); LYMPH % 7.9 % (24.0-44.0); MEAN CORPUSCULAR HEMOGLOBIN 27.8 pg (27.0-33.0); MEAN CORPUSCULAR HGB CONC 32.2 g/dl (32.0-36.5); MEAN CORPUSCULAR VOLUME 86.4 fl (80.0-96.0); MONO # 0.8 10^3/uL (0.0-0.8); MONO % 4.5 % (2.0-8.0); NEUTROPHILS % 85.2 % (36.0-66.0); PLATELET COUNT, AUTOMATED 170 10^3/uL (150-450); RED BLOOD COUNT 4.64 10^6/uL (4.00-5.40); WHITE BLOOD COUNT 18.8 10^3/uL (4.0-10.0)
[2023-07-16 13:10] LABS: ALBUMIN 1.6 G/DL (3.2-5.2); ALKALINE PHOSPHATASE 310 U/L (46-116); ALT/SGPT 11 U/L (7.0-40); AST/SGOT 32 U/L (<34); BILIRUBIN,TOTAL 1.1 MG/DL (0.3-1.2); BLOOD UREA NITROGEN 25 MG/DL (9-23); CALCIUM LEVEL 9.4 MG/DL (8.5-10.1); CARBON DIOXIDE LEVEL 22 MMOL/L (20-31); CHLORIDE LEVEL 98 MMOL/L (98-107); CK-MB VALUE MASS < 1.0 NG/ML (<3.6); CPK CREATINE PHOSPHOKINASE < 15 U/L (34-145); GLOMERULAR FILTRATION RATE > 60.0 (>51); GLUCOSE, FASTING 131 MG/DL (60-100); MAGNESIUM LEVEL 1.6 MG/DL (1.8-2.4); POTASSIUM SERUM 3.3 MMOL/L (3.5-5.1); SODIUM LEVEL 135 MMOL/L (136-145); TOTAL PROTEIN 6.3 G/DL (5.7-8.2)
[2023-07-16] MEDS: MORPHINE 4 MG/ML 1ML VIAL IV PRN (14:47)
[2023-07-16] MEDS ORDERED: FAT EMULSION IV 250 ML IV ONE (18:00)
[2023-07-16] MEDS ORDERED: MULTIVITAMIN -ADULT INJECTION 10 ML, ZINC/COPPER/MANGANESE/SELENIUM 1 ML in AMINO AC/EL... IV SCH (18:00)
[2023-07-16] MEDS: ONDANSETRON 4MG 2ML VIAL IV PRN (18:58)
[2023-07-16] MEDS: ATORVASTATIN 20 MG TAB PO SCH (23:23)
[2023-07-16] MEDS: MOM 30ML SUSPENSION UDC PO SCH (23:25)
[2023-07-17] MEDS: FUROSEMIDE 20MG/2ML VIAL IV SCH ×4 (01:00→18:42)
[2023-07-17 05:00] VITALS: BP 152/96; TEMP 97.4; O2SAT 98
[2023-07-17 05:55] LABS: BASO % 0.1 % (0.0-1.0); EOS % 0.1 % (0.0-3.0); HEMATOCRIT 38.8 % (36.0-47.0); HEMOGLOBIN 12.9 g/dl (12.0-15.5); LYMPH # 1.5 10^3/uL (1.5-5.0); LYMPH % 12.6 % (24.0-44.0); MEAN CORPUSCULAR HEMOGLOBIN 28.6 pg (27.0-33.0); MEAN CORPUSCULAR HGB CONC 33.2 g/dl (32.0-36.5); MONO # 0.7 10^3/uL (0.0-0.8); MONO % 5.7 % (2.0-8.0); NEUTROPHILS # 9.5 10^3/uL (1.5-8.5); NEUTROPHILS % 80.1 % (36.0-66.0); PLATELET COUNT, AUTOMATED 161 10^3/uL (150-450); RED BLOOD COUNT 4.51 10^6/uL (4.00-5.40); WHITE BLOOD COUNT 11.8 10^3/uL (4.0-10.0)
[2023-07-17] MEDS: SUCRALFATE SUSP 1GM/10ML UD PO SCH ×3 (06:00→17:44)
[2023-07-17] MEDS: INSULIN LISPRO (NovoLOG) PER UNIT SC SCH ×4 (06:00→17:44)
[2023-07-17 06:20] LABS: ALBUMIN 1.7 G/DL (3.2-5.2); ALKALINE PHOSPHATASE 321 U/L (46-116); ALT/SGPT 14 U/L (7.0-40); AST/SGOT 36 U/L (<34); BILIRUBIN,TOTAL 0.9 MG/DL (0.3-1.2); BLOOD UREA NITROGEN 29 MG/DL (9-23); CALCIUM LEVEL 9.5 MG/DL (8.5-10.1); CARBON DIOXIDE LEVEL 27 MMOL/L (20-31); CHLORIDE LEVEL 96 MMOL/L (98-107); CREATININE FOR GFR 0.86 MG/DL (0.55-1.30); GLOMERULAR FILTRATION RATE > 60.0 (>51); GLUCOSE, FASTING 135 MG/DL (60-100); MAGNESIUM LEVEL 1.6 MG/DL (1.8-2.4); PHOSPHORUS LEVEL 2.6 MG/DL (2.5-4.9); SODIUM LEVEL 136 MMOL/L (136-145); TOTAL PROTEIN 6.4 G/DL (5.7-8.2)
[2023-07-17] MEDS: SODIUM CHLORIDE 0.9% INJ 10 ML SYR IV SCH ×2 (06:46→17:45)
[2023-07-17] MEDS: SUCRALFATE SUSP 1GM/10ML UD NG SCH ×4 (07:00→23:47)
[2023-07-17] MEDS ORDERED: PANTOPRAZOLE 40MG VIAL IV ONE (07:10)
[2023-07-17 08:00] VITALS: BP 138/86; TEMP 96.9; O2SAT 97
[2023-07-17] MEDS: PANTOPRAZOLE SODIUM 40 MG in D5W 50 ML IV SCH ×4 (08:17→22:33)
[2023-07-17] MEDS: LACTOBACILLUS ACIDOPHILUS CAP (BACID) PO SCH ×3 (08:36→17:44)
[2023-07-17] MEDS: GABAPENTIN 400MG CAP PO SCH ×3 (08:36→20:45)
[2023-07-17] MEDS: SENOKOT S TAB PO SCH ×2 (08:36→21:19)
[2023-07-17] MEDS: MORPHINE 15 MG SA TAB PO SCH ×2 (08:37→20:50)
[2023-07-17] MEDS: SALIVA SUBSTITUTE(MOUTHKOTE) BTL MT SCH ×4 (08:41→21:19)
[2023-07-17] MEDS: AUGMENTIN 875 MG TAB PO SCH (08:41)
[2023-07-17] MEDS: FLUCONAZOLE 100 MG TAB PO SCH (08:41)
[2023-07-17] MEDS: CARVedilol 6.25 MG TAB PO SCH (08:41)
[2023-07-17] MEDS: LIDOCAINE 5% (LIDODERM) PATCH TD SCH (08:42)
[2023-07-17] MEDS ORDERED: AMPICILLIN SOD/SULBACTAM SOD 1.5 GM in D5W MINI-BAG PLUS 50 ML IV SCH (09:20)
[2023-07-17] MEDS ORDERED: MAG SULF 1GM/100ML (MAG RUN) 1 GM in IV 1 EA IV ONE ×2 (10:00→21:00)
[2023-07-17] MEDS ORDERED: KCL 10MEQ/100ML SWI (KRUN) 10 MEQ in IV 1 EA IV ONE ×2 (11:00→13:00)
[2023-07-17 12:00] VITALS: BP 146/90; TEMP 95.5; O2SAT 96
[2023-07-17] MEDS ORDERED: KCL 20MEQ IN 100ML SWI (KRUN) 20 MEQ in IV 1 EA IV ONE ×2 (12:00)
[2023-07-17] MEDS: AMPICILLIN SOD/SULBACTAM SOD 3 GM in D5W MINI-BAG PLUS 100 ML IV SCH ×3 (12:12→23:46)
[2023-07-17 12:38] LABS: HEMATOCRIT 36.8 % (36.0-47.0); HEMOGLOBIN 11.8 g/dl (12.0-15.5)
[2023-07-17] MEDS: REMDESIVIR 100 MG in NS 250 ML IV SCH (14:24)
[2023-07-17 16:00] VITALS: BP 136/65; TEMP 97.6; O2SAT 97
[2023-07-17] MEDS ORDERED: FAT EMULSION IV 250 ML IV ONE (18:00)
[2023-07-17] MEDS ORDERED: AMINO AC/ELECTROLYTE/DEX/CALC 2,000 ML IV SCH (18:00)
[2023-07-17 19:49] VITALS: BP 123/85; TEMP 97.5; O2SAT 98
[2023-07-17 19:55] LABS: HEMATOCRIT 35.9 % (36.0-47.0); HEMOGLOBIN 11.9 g/dl (12.0-15.5)
[2023-07-17] MEDS: KCL 20MEQ IN 100ML SWI (KRUN) 20 MEQ in IV 1 EA IV SCH ×4 (20:00→21:53)
[2023-07-17 20:17] LABS: MAGNESIUM LEVEL 1.5 MG/DL (1.8-2.4); POTASSIUM SERUM 3.1 MMOL/L (3.5-5.1)
[2023-07-17] MEDS: MOM 30ML SUSPENSION UDC PO SCH (20:45)
[2023-07-17] MEDS: ATORVASTATIN 20 MG TAB PO SCH (21:19)
[2023-07-17 23:25] VITALS: BP 116/72; TEMP 97; O2SAT 99
[2023-07-18] MEDS: INSULIN LISPRO (NovoLOG) PER UNIT SC SCH ×4 (00:06→18:38)
[2023-07-18 00:32] LABS: HEMATOCRIT 33.3 % (36.0-47.0); HEMOGLOBIN 11.3 g/dl (12.0-15.5)
[2023-07-18] MEDS: FUROSEMIDE 20MG/2ML VIAL IV SCH ×4 (01:00→18:28)
[2023-07-18 03:35] VITALS: BP 146/93; TEMP 97.1; O2SAT 98
[2023-07-18] MEDS: PANTOPRAZOLE SODIUM 40 MG in D5W 50 ML IV SCH ×5 (03:58→23:49)
[2023-07-18] MEDS: AMPICILLIN SOD/SULBACTAM SOD 3 GM in D5W MINI-BAG PLUS 100 ML IV SCH ×4 (05:12→23:49)
[2023-07-18] MEDS: SUCRALFATE SUSP 1GM/10ML UD NG SCH ×3 (05:12→17:20)
[2023-07-18 05:18] LABS: BASO % 0.2 % (0.0-1.0); EOS % 0.2 % (0.0-3.0); HEMATOCRIT 34.6 % (36.0-47.0); HEMOGLOBIN 11.3 g/dl (12.0-15.5); LYMPH # 1.4 10^3/uL (1.5-5.0); LYMPH % 10.9 % (24.0-44.0); MEAN CORPUSCULAR HEMOGLOBIN 28.3 pg (27.0-33.0); MEAN CORPUSCULAR HGB CONC 32.7 g/dl (32.0-36.5); MEAN CORPUSCULAR VOLUME 86.5 fl (80.0-96.0); MONO # 0.9 10^3/uL (0.0-0.8); MONO % 6.9 % (2.0-8.0); NEUTROPHILS # 10.3 10^3/uL (1.5-8.5); NEUTROPHILS % 80.2 % (36.0-66.0); PLATELET COUNT, AUTOMATED 109 10^3/uL (150-450); WHITE BLOOD COUNT 12.8 10^3/uL (4.0-10.0)
[2023-07-18 05:53] LABS: ALBUMIN 1.9 G/DL (3.2-5.2); ALKALINE PHOSPHATASE 286 U/L (46-116); ALT/SGPT 15 U/L (7.0-40); AST/SGOT 33 U/L (<34); BILIRUBIN,TOTAL 0.9 MG/DL (0.3-1.2); BLOOD UREA NITROGEN 28 MG/DL (9-23); CALCIUM LEVEL 9.1 MG/DL (8.5-10.1); CARBON DIOXIDE LEVEL 34 MMOL/L (20-31); CHLORIDE LEVEL 92 MMOL/L (98-107); CREATININE FOR GFR 0.58 MG/DL (0.55-1.30); GLOMERULAR FILTRATION RATE > 60.0 (>51); GLUCOSE, FASTING 118 MG/DL (60-100); MAGNESIUM LEVEL 1.7 MG/DL (1.8-2.4); PHOSPHORUS LEVEL 1.9 MG/DL (2.5-4.9); POTASSIUM SERUM 3.1 MMOL/L (3.5-5.1); SODIUM LEVEL 136 MMOL/L (136-145); TOTAL PROTEIN 6.2 G/DL (5.7-8.2)
[2023-07-18] MEDS: SUCRALFATE SUSP 1GM/10ML UD PO SCH ×4 (06:00→17:20)
[2023-07-18] MEDS: SODIUM CHLORIDE 0.9% INJ 10 ML SYR IV SCH ×2 (06:07→18:00)
[2023-07-18] MEDS: KCL 20MEQ IN 100ML SWI (KRUN) 20 MEQ in IV 1 EA IV SCH ×4 (07:51→09:32)
[2023-07-18] MEDS ORDERED: MAG SULF 1GM/100ML (MAG RUN) 1 GM in IV 1 EA IV ONE ×2 (08:00→09:00)
[2023-07-18] MEDS: LACTOBACILLUS ACIDOPHILUS CAP (BACID) PO SCH ×3 (08:00→17:20)
[2023-07-18] MEDS: MORPHINE 4 MG/ML 1ML VIAL IV PRN ×2 (08:01→15:23)
[2023-07-18 08:29] VITALS: BP 140/88; TEMP 97.8; O2SAT 100
[2023-07-18] MEDS: SENOKOT S TAB PO SCH ×2 (09:00→21:00)
[2023-07-18] MEDS: GABAPENTIN 400MG CAP PO SCH ×3 (09:00→22:00)
[2023-07-18] MEDS: SALIVA SUBSTITUTE(MOUTHKOTE) BTL MT SCH ×4 (09:33→22:02)
[2023-07-18] MEDS: MORPHINE 15 MG SA TAB PO SCH ×2 (09:34→22:01)
[2023-07-18] MEDS: LIDOCAINE 5% (LIDODERM) PATCH TD SCH (09:34)
[2023-07-18] MEDS ORDERED: EPIDURAL/PCA KEYS XX PRN (09:35)
[2023-07-18] MEDS ORDERED: diphenhydrAMINE 50MG/ML VIAL IV PRN (09:35)
[2023-07-18] MEDS ORDERED: NS 1,000 ML IV SCH (09:35)
[2023-07-18] MEDS ORDERED: ONDANSETRON 4MG 2ML VIAL IV PRN (09:35)
[2023-07-18] MEDS ORDERED: MORPHINE 1MG/ML IN 0.9% NACL 100ML IV BAG IV PRN (09:35)
[2023-07-18] MEDS ORDERED: NALOXONE INJ 0.4MG/1ML VIAL IV PRN (09:35)
[2023-07-18] MEDS ORDERED: MORPHINE 4 MG/ML 1ML VIAL IV ONE (10:10)
[2023-07-18] MEDS: REMDESIVIR 100 MG in NS 250 ML IV SCH (12:15)
[2023-07-18] MEDS ORDERED: POTASSIUM PHOSPHATE INJ 20 MMOL in D5W 250 ML IV ONE (13:00)
[2023-07-18] MEDS ORDERED: NITROGLYCERIN 0.4MG SUBL TABLET SL STA (15:11)
[2023-07-18] MEDS ORDERED: traZODone 25MG PER 1/2 TABLET PO PRN (15:15)
[2023-07-18] MEDS ORDERED: ISOVUE-370 76% 100ML VIAL As Ordered ONE (15:39)
[2023-07-18 16:00] VITALS: BP 141/91; TEMP 98.1; O2SAT 99
[2023-07-18 16:57] LABS: IONIZED CALCIUM 4.6 MG/DL (4.5-5.3)
[2023-07-18 17:32] LABS: CK-MB VALUE MASS < 1.0 NG/ML (<3.6); CPK CREATINE PHOSPHOKINASE < 15 U/L (34-145)
[2023-07-18 17:33] LABS: MAGNESIUM LEVEL 1.9 MG/DL (1.8-2.4); PHOSPHORUS LEVEL 4.6 MG/DL (2.5-4.9); POTASSIUM SERUM 3.6 MMOL/L (3.5-5.1)
[2023-07-18] MEDS ORDERED: AMINO AC/ELECTROLYTE/DEX/CALC 2,000 ML IV SCH (18:00)
[2023-07-18] MEDS ORDERED: FAT EMULSION IV 250 ML IV ONE (18:00)
[2023-07-18 19:58] VITALS: BP 129/81; TEMP 98; O2SAT 99
[2023-07-18] MEDS: traZODone 50 MG TAB PO PRN (22:01)
[2023-07-18] MEDS: MOM 30ML SUSPENSION UDC PO SCH (22:01)
[2023-07-18] MEDS: ATORVASTATIN 20 MG TAB PO SCH (22:01)
[2023-07-18 23:51] VITALS: BP 131/81; TEMP 97.8; O2SAT 98
[2023-07-19] MEDS: SUCRALFATE SUSP 1GM/10ML UD NG SCH ×2 (00:26→06:00)
[2023-07-19 01:07] LABS: CK-MB VALUE MASS < 1.0 NG/ML (<3.6)
[2023-07-19 01:17] LABS: CPK CREATINE PHOSPHOKINASE < 15 U/L (34-145)
[2023-07-19] MEDS: INSULIN LISPRO (NovoLOG) PER UNIT SC SCH ×5 (01:22→23:45)
[2023-07-19] MEDS: FUROSEMIDE 20MG/2ML VIAL IV SCH ×4 (01:28→18:37)
[2023-07-19 04:17] VITALS: BP 139/94; TEMP 97.6; O2SAT 98
[2023-07-19] MEDS: PANTOPRAZOLE SODIUM 40 MG in D5W 50 ML IV SCH ×5 (04:59→23:39)
[2023-07-19] MEDS: AMPICILLIN SOD/SULBACTAM SOD 3 GM in D5W MINI-BAG PLUS 100 ML IV SCH ×4 (04:59→23:39)
[2023-07-19] MEDS: SUCRALFATE SUSP 1GM/10ML UD PO SCH ×5 (06:00→23:39)
[2023-07-19] MEDS: SODIUM CHLORIDE 0.9% INJ 10 ML SYR IV SCH ×2 (06:22→18:00)
[2023-07-19 06:53] LABS: BASO % 0.1 % (0.0-1.0); EOS # 0.1 10^3/uL (0.0-0.5); EOS % 0.3 % (0.0-3.0); HEMATOCRIT 35.8 % (36.0-47.0); HEMOGLOBIN 11.6 g/dl (12.0-15.5); LYMPH # 1.6 10^3/uL (1.5-5.0); LYMPH % 8.8 % (24.0-44.0); MEAN CORPUSCULAR HEMOGLOBIN 28.2 pg (27.0-33.0); MEAN CORPUSCULAR HGB CONC 32.4 g/dl (32.0-36.5); MEAN CORPUSCULAR VOLUME 87.1 fl (80.0-96.0); MONO % 5.5 % (2.0-8.0); NEUTROPHILS # 15.2 10^3/uL (1.5-8.5); NEUTROPHILS % 83.9 % (36.0-66.0); RED BLOOD COUNT 4.11 10^6/uL (4.00-5.40); WHITE BLOOD COUNT 18.1 10^3/uL (4.0-10.0)
[2023-07-19 07:07] LABS: CK-MB VALUE MASS < 1.0 NG/ML (<3.6)
[2023-07-19 07:13] LABS: ALBUMIN 1.9 G/DL (3.2-5.2); ALKALINE PHOSPHATASE 289 U/L (46-116); ALT/SGPT 17 U/L (7.0-40); AST/SGOT 43 U/L (<34); BILIRUBIN,TOTAL 1.1 MG/DL (0.3-1.2); BLOOD UREA NITROGEN 30 MG/DL (9-23); CALCIUM LEVEL 9.1 MG/DL (8.5-10.1); CARBON DIOXIDE LEVEL 32 MMOL/L (20-31); CHLORIDE LEVEL 88 MMOL/L (98-107); CPK CREATINE PHOSPHOKINASE 21 U/L (34-145); CREATININE FOR GFR 0.48 MG/DL (0.55-1.30); GLOMERULAR FILTRATION RATE > 60.0 (>51); GLUCOSE, FASTING 137 MG/DL (60-100); MAGNESIUM LEVEL 1.5 MG/DL (1.8-2.4); MB/CK RELATIVE INDEX 4.76 (< OR =4); PHOSPHORUS LEVEL 2.8 MG/DL (2.5-4.9); POTASSIUM SERUM 3.2 MMOL/L (3.5-5.1); SODIUM LEVEL 135 MMOL/L (136-145); TOTAL PROTEIN 6.7 G/DL (5.7-8.2)
[2023-07-19] MEDS: SENOKOT S TAB PO SCH ×2 (08:32→21:02)
[2023-07-19] MEDS: LACTOBACILLUS ACIDOPHILUS CAP (BACID) PO SCH ×3 (08:32→16:25)
[2023-07-19] MEDS: SALIVA SUBSTITUTE(MOUTHKOTE) BTL MT SCH ×4 (08:33→21:04)
[2023-07-19] MEDS: MORPHINE 15 MG SA TAB PO SCH ×2 (08:33→21:03)
[2023-07-19] MEDS: LIDOCAINE 5% (LIDODERM) PATCH TD SCH (08:33)
[2023-07-19] MEDS: GABAPENTIN 400MG CAP PO SCH ×3 (08:33→21:01)
[2023-07-19] MEDS ORDERED: MAG SULF 1GM/100ML (MAG RUN) 1 GM in IV 1 EA IV ONE (09:00)
[2023-07-19 09:18] VITALS: BP 150/100; TEMP 98; O2SAT 94
[2023-07-19] MEDS ORDERED: POTASSIUM PHOSPHATE INJ 20 MMOL in D5W 250 ML IV ONE (10:00)
[2023-07-19 12:20] VITALS: BP 140/98; TEMP 97.8; O2SAT 100
[2023-07-19 12:21] LABS: CK-MB VALUE MASS < 1.0 NG/ML (<3.6)
[2023-07-19 12:22] LABS: CPK CREATINE PHOSPHOKINASE 24 U/L (34-145); MB/CK RELATIVE INDEX 4.16 (< OR =4)
[2023-07-19] MEDS: MORPHINE 4 MG/ML 1ML VIAL IV PRN (12:46)
[2023-07-19 15:39] VITALS: BP 136/94; TEMP 98.8; O2SAT 98
[2023-07-19] MEDS ORDERED: FAT EMULSION IV 250 ML IV ONE (18:00)
[2023-07-19] MEDS ORDERED: MULTIVITAMIN -ADULT INJECTION 10 ML, ZINC/COPPER/MANGANESE/SELENIUM 1 ML in AMINO AC/EL... IV SCH (18:00)
[2023-07-19 19:19] LABS: CK-MB VALUE MASS < 1.0 NG/ML (<3.6)
[2023-07-19 19:20] LABS: CPK CREATINE PHOSPHOKINASE 16 U/L (34-145); MB/CK RELATIVE INDEX 6.25 (< OR =4)
[2023-07-19 20:14] VITALS: BP 136/89; TEMP 97.6; O2SAT 95
[2023-07-19] MEDS: ATORVASTATIN 20 MG TAB PO SCH (21:02)
[2023-07-19] MEDS: traZODone 50 MG TAB PO PRN (21:02)
[2023-07-19] MEDS: MOM 30ML SUSPENSION UDC PO SCH (21:03)
[2023-07-19 23:55] VITALS: BP 127/80; TEMP 97.3; O2SAT 96
[2023-07-20] MEDS: FUROSEMIDE 20MG/2ML VIAL IV SCH ×4 (01:55→19:00)
[2023-07-20] MEDS: METOPROLOL 5 MG/5 ML VIAL IV PRN (03:26)
[2023-07-20] MEDS: MORPHINE 4 MG/ML 1ML VIAL IV PRN ×2 (03:34→05:29)
[2023-07-20 04:24] VITALS: BP 142/99; TEMP 96.9; O2SAT 94
[2023-07-20] MEDS: AMPICILLIN SOD/SULBACTAM SOD 3 GM in D5W MINI-BAG PLUS 100 ML IV SCH ×3 (04:27→17:51)
[2023-07-20] MEDS: PANTOPRAZOLE SODIUM 40 MG in D5W 50 ML IV SCH ×4 (04:27→19:43)
[2023-07-20] MEDS: SUCRALFATE SUSP 1GM/10ML UD PO SCH ×4 (06:00→21:19)
[2023-07-20] MEDS: SODIUM CHLORIDE 0.9% INJ 10 ML SYR IV SCH ×2 (06:00→18:00)
[2023-07-20 07:16] LABS: ALKALINE PHOSPHATASE 300 U/L (46-116); ALT/SGPT 18 U/L (7.0-40); AST/SGOT 42 U/L (<34); BILIRUBIN,TOTAL 1.3 MG/DL (0.3-1.2); BLOOD UREA NITROGEN 32 MG/DL (9-23); CALCIUM LEVEL 8.7 MG/DL (8.5-10.1); CARBON DIOXIDE LEVEL 34 MMOL/L (20-31); CHLORIDE LEVEL 83 MMOL/L (98-107); CREATININE FOR GFR 0.48 MG/DL (0.55-1.30); GLOMERULAR FILTRATION RATE > 60.0 (>51); GLUCOSE, FASTING 114 MG/DL (60-100); MAGNESIUM LEVEL 1.4 MG/DL (1.8-2.4); PHOSPHORUS LEVEL 3.4 MG/DL (2.5-4.9); POTASSIUM SERUM 3.3 MMOL/L (3.5-5.1); SODIUM LEVEL 131 MMOL/L (136-145); TOTAL PROTEIN 6.8 G/DL (5.7-8.2)
[2023-07-20 07:17] LABS: BASO % 0.1 % (0.0-1.0); EOS # 0.2 10^3/uL (0.0-0.5); EOS % 0.9 % (0.0-3.0); HEMATOCRIT 37.5 % (36.0-47.0); HEMOGLOBIN 12.2 g/dl (12.0-15.5); LYMPH # 2.2 10^3/uL (1.5-5.0); LYMPH % 9.9 % (24.0-44.0); MEAN CORPUSCULAR HEMOGLOBIN 28.3 pg (27.0-33.0); MEAN CORPUSCULAR HGB CONC 32.5 g/dl (32.0-36.5); MONO # 1.2 10^3/uL (0.0-0.8); MONO % 5.5 % (2.0-8.0); NEUTROPHILS # 17.9 10^3/uL (1.5-8.5); NEUTROPHILS % 81.7 % (36.0-66.0); RED BLOOD COUNT 4.31 10^6/uL (4.00-5.40); WHITE BLOOD COUNT 21.9 10^3/uL (4.0-10.0)
[2023-07-20 07:25] LABS: PLATELET COUNT, AUTOMATED 83 10^3/uL (150-450)
[2023-07-20 08:10] VITALS: BP 108/76; TEMP 97.3; O2SAT 97
[2023-07-20] MEDS: SALIVA SUBSTITUTE(MOUTHKOTE) BTL MT SCH ×4 (09:00→21:40)
[2023-07-20] MEDS: LACTOBACILLUS ACIDOPHILUS CAP (BACID) PO SCH ×3 (10:50→17:51)
[2023-07-20] MEDS: GABAPENTIN 400MG CAP PO SCH ×3 (10:51→21:22)
[2023-07-20] MEDS: MORPHINE 15 MG SA TAB PO SCH ×2 (10:51→21:24)
[2023-07-20] MEDS: SENOKOT S TAB PO SCH ×2 (10:51→21:22)
[2023-07-20] MEDS: MAG SULF 1GM/100ML (MAG RUN) 1 GM in IV 1 EA IV SCH ×4 (10:53→18:48)
[2023-07-20] MEDS: LIDOCAINE 5% (LIDODERM) PATCH TD SCH (10:57)
[2023-07-20] MEDS ORDERED: hydrALAZINE 20MG/ML 1ML VIAL IV ONE (11:25)
[2023-07-20 12:00] VITALS: BP 109/76; TEMP 98.4; O2SAT 99
[2023-07-20] MEDS: INSULIN LISPRO (NovoLOG) PER UNIT SC SCH ×2 (12:00→18:57)
[2023-07-20] MEDS: KCL 10MEQ/100ML SWI (KRUN) 10 MEQ in IV 1 EA IV SCH ×6 (15:00→22:13)
[2023-07-20 16:08] VITALS: BP 109/71; TEMP 96.9; O2SAT 99
[2023-07-20] MEDS: ACETAMINOPHEN TAB 650MG DOSE (2X325MG) PO PRN (17:51)
[2023-07-20] MEDS ORDERED: FAT EMULSION IV 250 ML IV ONE (18:00)
[2023-07-20] MEDS ORDERED: AMINO AC/ELECTROLYTE/DEX/CALC 2,000 ML IV SCH (18:00)
[2023-07-20 19:27] VITALS: BP 111/81; TEMP 97; O2SAT 99
[2023-07-20] MEDS ORDERED: MAG SULF 1GM/100ML (MAG RUN) 1 GM in IV 1 EA IV ONE (21:00)
[2023-07-20] MEDS: ATORVASTATIN 20 MG TAB PO SCH (21:22)
[2023-07-20] MEDS: traZODone 50 MG TAB PO PRN (21:23)
[2023-07-20] MEDS: MOM 30ML SUSPENSION UDC PO SCH (21:24)
[2023-07-20 23:45] VITALS: BP 139/89; TEMP 96.8; O2SAT 98
[2023-07-21] VITALS (10 sets, daily range): BP systolic 126–148; BP diastolic 84–98; TEMP 97.3–98.6; O2SAT 96–100
[2023-07-21] MEDS: AMPICILLIN SOD/SULBACTAM SOD 3 GM in D5W MINI-BAG PLUS 100 ML IV SCH ×5 (00:16→23:21)
[2023-07-21] MEDS: PANTOPRAZOLE SODIUM 40 MG in D5W 50 ML IV SCH ×4 (00:16→17:46)
[2023-07-21] MEDS: INSULIN LISPRO (NovoLOG) PER UNIT SC SCH ×5 (00:23→23:40)
[2023-07-21] MEDS: FUROSEMIDE 20MG/2ML VIAL IV SCH ×2 (01:00→06:33)
[2023-07-21] MEDS: SODIUM CHLORIDE 0.9% INJ 10 ML SYR IV SCH ×2 (05:32→18:00)
[2023-07-21] MEDS: SUCRALFATE SUSP 1GM/10ML UD PO SCH ×4 (05:35→23:21)
[2023-07-21 06:32] LABS: BASO % 0.2 % (0.0-1.0); EOS # 0.2 10^3/uL (0.0-0.5); HEMATOCRIT 35.2 % (36.0-47.0); HEMOGLOBIN 11.5 g/dl (12.0-15.5); LYMPH # 1.9 10^3/uL (1.5-5.0); LYMPH % 8.3 % (24.0-44.0); MEAN CORPUSCULAR HEMOGLOBIN 28.5 pg (27.0-33.0); MEAN CORPUSCULAR HGB CONC 32.7 g/dl (32.0-36.5); MEAN CORPUSCULAR VOLUME 87.3 fl (80.0-96.0); MONO # 1.2 10^3/uL (0.0-0.8); MONO % 5.1 % (2.0-8.0); NEUTROPHILS # 19.2 10^3/uL (1.5-8.5); NEUTROPHILS % 83.2 % (36.0-66.0); RED BLOOD COUNT 4.03 10^6/uL (4.00-5.40)
[2023-07-21 06:34] LABS: PLATELET COUNT, AUTOMATED 79 10^3/uL (150-450)
[2023-07-21 06:59] LABS: ALBUMIN 1.8 G/DL (3.2-5.2); ALKALINE PHOSPHATASE 282 U/L (46-116); ALT/SGPT 16 U/L (7.0-40); AST/SGOT 53 U/L (<34); BILIRUBIN,TOTAL 1.2 MG/DL (0.3-1.2); BLOOD UREA NITROGEN 30 MG/DL (9-23); CALCIUM LEVEL 8.5 MG/DL (8.5-10.1); CARBON DIOXIDE LEVEL 31 MMOL/L (20-31); CHLORIDE LEVEL 84 MMOL/L (98-107); CREATININE FOR GFR 0.43 MG/DL (0.55-1.30); GLOMERULAR FILTRATION RATE > 60.0 (>51); GLUCOSE, FASTING 107 MG/DL (60-100); MAGNESIUM LEVEL 1.9 MG/DL (1.8-2.4); PHOSPHORUS LEVEL 2.5 MG/DL (2.5-4.9); POTASSIUM SERUM 3.6 MMOL/L (3.5-5.1); SODIUM LEVEL 127 MMOL/L (136-145); TOTAL PROTEIN 6.3 G/DL (5.7-8.2)
[2023-07-21] MEDS: SENOKOT S TAB PO SCH ×2 (08:27→21:40)
[2023-07-21] MEDS: GABAPENTIN 400MG CAP PO SCH ×3 (08:27→21:40)
[2023-07-21] MEDS: LACTOBACILLUS ACIDOPHILUS CAP (BACID) PO SCH ×3 (08:27→17:19)
[2023-07-21] MEDS: LIDOCAINE 5% (LIDODERM) PATCH TD SCH (08:28)
[2023-07-21] MEDS: MORPHINE 15 MG SA TAB PO SCH (09:00)
[2023-07-21] MEDS: SALIVA SUBSTITUTE(MOUTHKOTE) BTL MT SCH ×4 (09:00→21:42)
[2023-07-21] MEDS: MORPHINE 2 MG/ML 1ML VIAL IV SCH ×2 (11:04→23:21)
[2023-07-21] MEDS: MORPHINE 4 MG/ML 1ML VIAL IV PRN ×2 (17:20→21:49)
[2023-07-21] MEDS ORDERED: FAT EMULSION IV 250 ML IV ONE (18:00)
[2023-07-21] MEDS ORDERED: MULTIVITAMIN -ADULT INJECTION 10 ML, ZINC/COPPER/MANGANESE/SELENIUM 1 ML in AMINO AC/EL... IV SCH (18:00)
[2023-07-21 18:57] LABS: BLOOD UREA NITROGEN 29 MG/DL (9-23); CALCIUM LEVEL 9.1 MG/DL (8.5-10.1); CARBON DIOXIDE LEVEL 31 MMOL/L (20-31); CHLORIDE LEVEL 86 MMOL/L (98-107); CREATININE FOR GFR 0.43 MG/DL (0.55-1.30); GLOMERULAR FILTRATION RATE > 60.0 (>51); GLUCOSE, FASTING 77 MG/DL (60-100); POTASSIUM SERUM 4.4 MMOL/L (3.5-5.1); SODIUM LEVEL 127 MMOL/L (136-145)
[2023-07-21] MEDS: METOPROLOL 5 MG/5 ML VIAL IV PRN (20:07)
[2023-07-21] MEDS: MOM 30ML SUSPENSION UDC PO SCH (21:39)
[2023-07-21] MEDS: ATORVASTATIN 20 MG TAB PO SCH (21:40)
[2023-07-21] MEDS ORDERED: LIDOCAINE 5% (LIDODERM) PATCH TD SCH (22:30)
[2023-07-22] MEDS: FLEET ENEMA PR PRN (02:32)
[2023-07-22 03:15] VITALS: BP 134/93; TEMP 97.4; O2SAT 99
[2023-07-22] MEDS ORDERED: SODIUM CHLORIDE 0.9% INJ 10 ML SYR IV PRN (03:25)
[2023-07-22] MEDS: MORPHINE 4 MG/ML 1ML VIAL IV PRN ×4 (03:51→19:48)
[2023-07-22] MEDS: SUCRALFATE SUSP 1GM/10ML UD PO SCH ×3 (05:39→16:53)
[2023-07-22] MEDS: AMPICILLIN SOD/SULBACTAM SOD 3 GM in D5W MINI-BAG PLUS 100 ML IV SCH ×4 (05:39→22:07)
[2023-07-22] MEDS: INSULIN LISPRO (NovoLOG) PER UNIT SC SCH ×3 (05:39→17:17)
[2023-07-22] MEDS: SODIUM CHLORIDE 0.9% INJ 10 ML SYR IV SCH ×3 (05:40→16:59)
[2023-07-22 06:15] LABS: BASO % 0.2 % (0.0-1.0); EOS # 0.1 10^3/uL (0.0-0.5); EOS % 0.3 % (0.0-3.0); HEMATOCRIT 35.8 % (36.0-47.0); HEMOGLOBIN 11.6 g/dl (12.0-15.5); LYMPH # 1.2 10^3/uL (1.5-5.0); LYMPH % 6.2 % (24.0-44.0); MEAN CORPUSCULAR HGB CONC 32.4 g/dl (32.0-36.5); MEAN CORPUSCULAR VOLUME 86.5 fl (80.0-96.0); MONO # 0.8 10^3/uL (0.0-0.8); MONO % 4.2 % (2.0-8.0); NEUTROPHILS # 16.8 10^3/uL (1.5-8.5); NEUTROPHILS % 86.8 % (36.0-66.0); RED BLOOD COUNT 4.14 10^6/uL (4.00-5.40); WHITE BLOOD COUNT 19.3 10^3/uL (4.0-10.0)
[2023-07-22 06:16] LABS: PLATELET COUNT, AUTOMATED 93 10^3/uL (150-450)
[2023-07-22 06:49] LABS: ALBUMIN 1.9 G/DL (3.2-5.2); ALKALINE PHOSPHATASE 340 U/L (46-116); ALT/SGPT 20 U/L (7.0-40); AST/SGOT 54 U/L (<34); BILIRUBIN,TOTAL 1.2 MG/DL (0.3-1.2); BLOOD UREA NITROGEN 31 MG/DL (9-23); CARBON DIOXIDE LEVEL 28 MMOL/L (20-31); CHLORIDE LEVEL 87 MMOL/L (98-107); CREATININE FOR GFR 0.42 MG/DL (0.55-1.30); GLOMERULAR FILTRATION RATE > 60.0 (>51); GLUCOSE, FASTING 113 MG/DL (60-100); MAGNESIUM LEVEL 1.6 MG/DL (1.8-2.4); POTASSIUM SERUM 3.5 MMOL/L (3.5-5.1); SODIUM LEVEL 129 MMOL/L (136-145); TOTAL PROTEIN 6.5 G/DL (5.7-8.2)
[2023-07-22 08:00] VITALS: BP 125/75; TEMP 97.9; O2SAT 100
[2023-07-22] MEDS: MAG SULF 1GM/100ML (MAG RUN) 1 GM in IV 1 EA IV SCH ×2 (08:45→10:31)
[2023-07-22] MEDS: LIDOCAINE 5% (LIDODERM) PATCH TD SCH (08:55)
[2023-07-22] MEDS: LACTOBACILLUS ACIDOPHILUS CAP (BACID) PO SCH ×3 (08:56→16:53)
[2023-07-22] MEDS: SENOKOT S TAB PO SCH ×2 (08:56→20:53)
[2023-07-22] MEDS: GABAPENTIN 400MG CAP PO SCH ×3 (08:56→20:53)
[2023-07-22] MEDS: SALIVA SUBSTITUTE(MOUTHKOTE) BTL MT SCH ×4 (08:57→20:52)
[2023-07-22] MEDS ORDERED: PANTOPRAZOLE 40MG VIAL IV SCH (09:00)
[2023-07-22 12:00] VITALS: BP 169/89; TEMP 97.9; O2SAT 100
[2023-07-22] MEDS: MORPHINE 2 MG/ML 1ML VIAL IV SCH ×2 (12:02→22:06)
[2023-07-22 16:00] VITALS: BP 138/80; TEMP 98.5; O2SAT 99
[2023-07-22] MEDS ORDERED: AMINO AC/ELECTROLYTE/DEX/CALC 2,000 ML IV SCH (18:00)
[2023-07-22] MEDS ORDERED: FAT EMULSION IV 250 ML IV ONE (18:00)
[2023-07-22] MEDS: PANTOPRAZOLE SODIUM 40 MG in D5W 50 ML IV SCH ×2 (19:48→23:19)
[2023-07-22 20:27] VITALS: BP 129/87; TEMP 98.1; O2SAT 100
[2023-07-22] MEDS: MOM 30ML SUSPENSION UDC PO SCH (20:53)
[2023-07-22] MEDS: ATORVASTATIN 20 MG TAB PO SCH (20:53)
[2023-07-22 23:20] VITALS: BP 117/78; TEMP 97.9; O2SAT 99
[2023-07-23] MEDS: SUCRALFATE SUSP 1GM/10ML UD PO SCH ×4 (00:30→18:00)
[2023-07-23] MEDS: MORPHINE 4 MG/ML 1ML VIAL IV PRN ×8 (00:30→22:21)
[2023-07-23 03:50] VITALS: BP 134/90; TEMP 97.5; O2SAT 100
[2023-07-23] MEDS: PANTOPRAZOLE SODIUM 40 MG in D5W 50 ML IV SCH ×4 (03:54→19:33)
[2023-07-23] MEDS: AMPICILLIN SOD/SULBACTAM SOD 3 GM in D5W MINI-BAG PLUS 100 ML IV SCH ×4 (05:16→22:21)
[2023-07-23 05:39] LABS: BASO % 0.1 % (0.0-1.0); EOS # 0.9 10^3/uL (0.0-0.5); EOS % 4.3 % (0.0-3.0); HEMATOCRIT 34.2 % (36.0-47.0); HEMOGLOBIN 11.1 g/dl (12.0-15.5); LYMPH # 1.6 10^3/uL (1.5-5.0); MEAN CORPUSCULAR HEMOGLOBIN 28.5 pg (27.0-33.0); MEAN CORPUSCULAR HGB CONC 32.5 g/dl (32.0-36.5); MEAN CORPUSCULAR VOLUME 87.7 fl (80.0-96.0); MONO # 1.3 10^3/uL (0.0-0.8); MONO % 6.4 % (2.0-8.0); NEUTROPHILS # 15.9 10^3/uL (1.5-8.5); NEUTROPHILS % 79.3 % (36.0-66.0)
[2023-07-23 05:40] LABS: PLATELET COUNT, AUTOMATED 84 10^3/uL (150-450)
[2023-07-23 05:48] LABS: ALBUMIN 1.8 G/DL (3.2-5.2); ALKALINE PHOSPHATASE 373 U/L (46-116); ALT/SGPT 23 U/L (7.0-40); AST/SGOT 58 U/L (<34); BILIRUBIN,TOTAL 1.3 MG/DL (0.3-1.2); BLOOD UREA NITROGEN 29 MG/DL (9-23); CALCIUM LEVEL 9.2 MG/DL (8.5-10.1); CARBON DIOXIDE LEVEL 31 MMOL/L (20-31); CHLORIDE LEVEL 88 MMOL/L (98-107); CREATININE FOR GFR 0.41 MG/DL (0.55-1.30); GLOMERULAR FILTRATION RATE > 60.0 (>51); GLUCOSE, FASTING 90 MG/DL (60-100); MAGNESIUM LEVEL 1.9 MG/DL (1.8-2.4); POTASSIUM SERUM 3.1 MMOL/L (3.5-5.1); SODIUM LEVEL 132 MMOL/L (136-145); TOTAL PROTEIN 6.4 G/DL (5.7-8.2)
[2023-07-23] MEDS: INSULIN LISPRO (NovoLOG) PER UNIT SC SCH ×3 (06:00→11:57)
[2023-07-23] MEDS: SODIUM CHLORIDE 0.9% INJ 10 ML SYR IV SCH ×3 (06:43→18:00)
[2023-07-23 08:31] VITALS: BP 140/90; TEMP 98.3; O2SAT 99
[2023-07-23] MEDS: KCL 10MEQ/100ML SWI (KRUN) 10 MEQ in IV 1 EA IV SCH ×2 (08:43→10:41)
[2023-07-23] MEDS: SENOKOT S TAB PO SCH ×2 (09:15→22:20)
[2023-07-23] MEDS: GABAPENTIN 400MG CAP PO SCH ×3 (09:16→22:20)
[2023-07-23] MEDS: LACTOBACILLUS ACIDOPHILUS CAP (BACID) PO SCH ×3 (09:16→18:00)
[2023-07-23] MEDS: SALIVA SUBSTITUTE(MOUTHKOTE) BTL MT SCH ×4 (09:16→22:23)
[2023-07-23] MEDS: MORPHINE 2 MG/ML 1ML VIAL IV SCH ×2 (11:00→22:22)
[2023-07-23 12:55] VITALS: BP 137/93; TEMP 98; O2SAT 98
[2023-07-23] MEDS: FUROSEMIDE 20MG/2ML VIAL IV SCH ×2 (13:08→18:25)
[2023-07-23 16:08] VITALS: BP 120/82; TEMP 97.6; O2SAT 99
[2023-07-23] MEDS ORDERED: FAT EMULSION IV 250 ML IV ONE (18:00)
[2023-07-23] MEDS ORDERED: MULTIVITAMIN -ADULT INJECTION 10 ML, ZINC/COPPER/MANGANESE/SELENIUM 1 ML in AMINO AC/EL... IV SCH (18:00)
[2023-07-23 20:00] VITALS: BP_SYST 118; BP_SYST 164; BP_DIAS 62; BP_DIAS 81; TEMP 98.1; O2SAT 99
[2023-07-23] MEDS: MOM 30ML SUSPENSION UDC PO SCH (22:15)
[2023-07-23] MEDS: traZODone 50 MG TAB PO PRN (22:20)
[2023-07-23] MEDS: ATORVASTATIN 20 MG TAB PO SCH (22:20)
[2023-07-23] MEDS: CALCIUM CARBONATE 500 MG CHEW U/D PO PRN (22:23)
[2023-07-23 23:16] VITALS: BP 119/84; TEMP 99.2; O2SAT 98
[2023-07-24] VITALS (8 sets, daily range): BP systolic 109–130; BP diastolic 69–87; TEMP 97.9–100; O2SAT 95–100
[2023-07-24] MEDS: FUROSEMIDE 20MG/2ML VIAL IV SCH ×4 (00:17→18:48)
[2023-07-24] MEDS: SUCRALFATE SUSP 1GM/10ML UD PO SCH ×5 (00:17→23:08)
[2023-07-24] MEDS: PANTOPRAZOLE SODIUM 40 MG in D5W 50 ML IV SCH ×5 (00:18→21:42)
[2023-07-24] MEDS: MORPHINE 4 MG/ML 1ML VIAL IV PRN ×4 (02:16→19:39)
[2023-07-24] MEDS: HYDROMORPHONE HCL 0.5 MG/ 0.5 ML SYRINGE IV PRN ×4 (03:24→23:09)
[2023-07-24] MEDS: SODIUM CHLORIDE 0.9% INJ 10 ML SYR IV SCH ×3 (05:58→17:26)
[2023-07-24] MEDS: AMPICILLIN SOD/SULBACTAM SOD 3 GM in D5W MINI-BAG PLUS 100 ML IV SCH ×4 (05:59→22:02)
[2023-07-24 06:41] LABS: BASO % 0.1 % (0.0-1.0); EOS % 6.3 % (0.0-3.0); HEMATOCRIT 35.6 % (36.0-47.0); HEMOGLOBIN 11.2 g/dl (12.0-15.5); LYMPH # 1.6 10^3/uL (1.5-5.0); LYMPH % 10.3 % (24.0-44.0); MEAN CORPUSCULAR HEMOGLOBIN 28.1 pg (27.0-33.0); MEAN CORPUSCULAR HGB CONC 31.5 g/dl (32.0-36.5); MEAN CORPUSCULAR VOLUME 89.2 fl (80.0-96.0); MONO % 6.5 % (2.0-8.0); NEUTROPHILS # 11.8 10^3/uL (1.5-8.5); NEUTROPHILS % 75.5 % (36.0-66.0); RED BLOOD COUNT 3.99 10^6/uL (4.00-5.40); WHITE BLOOD COUNT 15.6 10^3/uL (4.0-10.0)
[2023-07-24 06:54] LABS: PLATELET COUNT, AUTOMATED 95 10^3/uL (150-450)
[2023-07-24 07:04] LABS: ALBUMIN 1.8 G/DL (3.2-5.2); ALKALINE PHOSPHATASE 408 U/L (46-116); ALT/SGPT 21 U/L (7.0-40); AST/SGOT 58 U/L (<34); BILIRUBIN,TOTAL 1.4 MG/DL (0.3-1.2); BLOOD UREA NITROGEN 31 MG/DL (9-23); CALCIUM LEVEL 9.6 MG/DL (8.5-10.1); CARBON DIOXIDE LEVEL 35 MMOL/L (20-31); CHLORIDE LEVEL 88 MMOL/L (98-107); CREATININE FOR GFR 0.52 MG/DL (0.55-1.30); GLOMERULAR FILTRATION RATE > 60.0 (>51); GLUCOSE, FASTING 108 MG/DL (60-100); POTASSIUM SERUM 3.3 MMOL/L (3.5-5.1); SODIUM LEVEL 130 MMOL/L (136-145); TOTAL PROTEIN 6.5 G/DL (5.7-8.2)
[2023-07-24] MEDS: SENOKOT S TAB PO SCH ×2 (09:00→22:04)
[2023-07-24] MEDS: SALIVA SUBSTITUTE(MOUTHKOTE) BTL MT SCH ×4 (09:00→22:04)
[2023-07-24] MEDS: GABAPENTIN 400MG CAP PO SCH ×3 (09:00→22:03)
[2023-07-24] MEDS: LACTOBACILLUS ACIDOPHILUS CAP (BACID) PO SCH ×3 (09:33→18:56)
[2023-07-24] MEDS: MORPHINE 2 MG/ML 1ML VIAL IV SCH ×2 (10:32→22:01)
[2023-07-24] MEDS: INSULIN LISPRO (NovoLOG) PER UNIT SC SCH ×2 (17:24→23:08)
[2023-07-24] MEDS ORDERED: CALC IV SCH (18:00)
[2023-07-24] MEDS ORDERED: AMINO AC IV SCH (18:00)
[2023-07-24] MEDS ORDERED: FAT EMULSION IV 250 ML IV ONE (18:00)
[2023-07-24] MEDS ORDERED: POTASSIUM CHLORIDE IV SCH (18:00)
[2023-07-24] MEDS ORDERED: ELECTROLYTE IV SCH (18:00)
[2023-07-24] MEDS ORDERED: DEX IV SCH (18:00)
[2023-07-24] MEDS: MAALOX 30 ML SUSP *UDC PO PRN (22:00)
[2023-07-24] MEDS: MOM 30ML SUSPENSION UDC PO SCH (22:04)
[2023-07-24] MEDS: ATORVASTATIN 20 MG TAB PO SCH (22:04)
[2023-07-25] VITALS (7 sets, daily range): BP systolic 111–141; BP diastolic 73–93; TEMP 98.3–98.9; O2SAT 98–100
[2023-07-25] MEDS: FUROSEMIDE 20MG/2ML VIAL IV SCH ×4 (00:46→18:24)
[2023-07-25] MEDS: MORPHINE 4 MG/ML 1ML VIAL IV PRN ×3 (01:59→22:06)
[2023-07-25] MEDS: PANTOPRAZOLE SODIUM 40 MG in D5W 50 ML IV SCH ×5 (02:00→20:10)
[2023-07-25] MEDS: AMPICILLIN SOD/SULBACTAM SOD 3 GM in D5W MINI-BAG PLUS 100 ML IV SCH ×4 (05:06→22:06)
[2023-07-25] MEDS: ACETAMINOPHEN TAB 650MG DOSE (2X325MG) PO PRN ×2 (05:07→20:17)
[2023-07-25] MEDS: HYDROMORPHONE HCL 0.5 MG/ 0.5 ML SYRINGE IV PRN ×5 (05:07→20:10)
[2023-07-25] MEDS: SUCRALFATE SUSP 1GM/10ML UD PO SCH ×5 (05:07→23:51)
[2023-07-25] MEDS: SODIUM CHLORIDE 0.9% INJ 10 ML SYR IV SCH ×3 (05:08→17:05)
[2023-07-25] MEDS: INSULIN LISPRO (NovoLOG) PER UNIT SC SCH ×2 (06:00→12:00)
[2023-07-25 07:03] LABS: HEMATOCRIT 29.2 % (36.0-47.0); HEMOGLOBIN 9.4 g/dl (12.0-15.5); MEAN CORPUSCULAR HEMOGLOBIN 28.6 pg (27.0-33.0); MEAN CORPUSCULAR HGB CONC 32.2 g/dl (32.0-36.5); MEAN CORPUSCULAR VOLUME 88.8 fl (80.0-96.0); RED BLOOD COUNT 3.29 10^6/uL (4.00-5.40); WHITE BLOOD COUNT 14.6 10^3/uL (4.0-10.0)
[2023-07-25 07:05] LABS: PLATELET COUNT, AUTOMATED 89 10^3/uL (150-450)
[2023-07-25 07:40] LABS: ALBUMIN 1.5 G/DL (3.2-5.2); ALKALINE PHOSPHATASE 402 U/L (46-116); ALT/SGPT 24 U/L (7.0-40); AST/SGOT 54 U/L (<34); BILIRUBIN,TOTAL 1.4 MG/DL (0.3-1.2); BLOOD UREA NITROGEN 29 MG/DL (9-23); CALCIUM LEVEL 9.3 MG/DL (8.5-10.1); CARBON DIOXIDE LEVEL 33 MMOL/L (20-31); CHLORIDE LEVEL 91 MMOL/L (98-107); CREATININE FOR GFR 0.44 MG/DL (0.55-1.30); GLOMERULAR FILTRATION RATE > 60.0 (>51); GLUCOSE, FASTING 114 MG/DL (60-100); MAGNESIUM LEVEL 1.9 MG/DL (1.8-2.4); POTASSIUM SERUM 3.3 MMOL/L (3.5-5.1); SODIUM LEVEL 132 MMOL/L (136-145); TOTAL PROTEIN 6.1 G/DL (5.7-8.2)
[2023-07-25] MEDS: SENOKOT S TAB PO SCH ×2 (09:55→20:17)
[2023-07-25] MEDS: GABAPENTIN 400MG CAP PO SCH ×3 (09:56→20:16)
[2023-07-25] MEDS: SALIVA SUBSTITUTE(MOUTHKOTE) BTL MT SCH ×4 (09:56→20:17)
[2023-07-25] MEDS: LACTOBACILLUS ACIDOPHILUS CAP (BACID) PO SCH ×4 (09:58→17:22)
[2023-07-25] MEDS ORDERED: NS 500 ML IV ONE (10:00)
[2023-07-25] MEDS: MORPHINE 2 MG/ML 1ML VIAL IV SCH ×2 (11:53→23:51)
[2023-07-25 15:16] LABS: HEMATOCRIT 30.6 % (36.0-47.0); HEMOGLOBIN 9.9 g/dl (12.0-15.5)
[2023-07-25] MEDS ORDERED: FAT EMULSION IV 250 ML IV ONE (18:00)
[2023-07-25] MEDS ORDERED: POTASSIUM CHLORIDE INJ 40 MEQ in AMINO AC/ELECTROLYTE/DEX/CALC 2,000 ML IV SCH (18:00)
[2023-07-25] MEDS: FENTANYL REMOVAL DOCUMENTATION MISC XX SCH (18:20)
[2023-07-25] MEDS: MAALOX 30 ML SUSP *UDC PO PRN (20:15)
[2023-07-25] MEDS: MOM 30ML SUSPENSION UDC PO SCH (20:15)
[2023-07-25] MEDS: ATORVASTATIN 20 MG TAB PO SCH (20:16)
[2023-07-25] MEDS: traZODone 50 MG TAB PO PRN (20:16)
[2023-07-26] MEDS: FUROSEMIDE 20MG/2ML VIAL IV SCH ×5 (00:25→18:55)
[2023-07-26] MEDS: HYDROMORPHONE HCL 0.5 MG/ 0.5 ML SYRINGE IV PRN ×6 (01:20→21:57)
[2023-07-26] MEDS: PANTOPRAZOLE SODIUM 40 MG in D5W 50 ML IV SCH ×5 (01:20→21:56)
[2023-07-26 04:00] VITALS: BP 118/79; TEMP 98.5; O2SAT 99
[2023-07-26] MEDS: AMPICILLIN SOD/SULBACTAM SOD 3 GM in D5W MINI-BAG PLUS 100 ML IV SCH ×3 (04:26→17:13)
[2023-07-26] MEDS: MORPHINE 4 MG/ML 1ML VIAL IV PRN ×2 (04:27→17:12)
[2023-07-26] MEDS: SODIUM CHLORIDE 0.9% INJ 10 ML SYR IV SCH ×3 (05:37→18:00)
[2023-07-26] MEDS: ACETAMINOPHEN TAB 650MG DOSE (2X325MG) PO PRN (05:40)
[2023-07-26] MEDS: SUCRALFATE SUSP 1GM/10ML UD PO SCH ×3 (05:40→18:53)
[2023-07-26 05:57] LABS: HEMATOCRIT 27.5 % (36.0-47.0); HEMOGLOBIN 8.8 g/dl (12.0-15.5); MEAN CORPUSCULAR HEMOGLOBIN 28.5 pg (27.0-33.0); PLATELET COUNT, AUTOMATED 120 10^3/uL (150-450); RED BLOOD COUNT 3.09 10^6/uL (4.00-5.40); WHITE BLOOD COUNT 14.7 10^3/uL (4.0-10.0)
[2023-07-26 06:17] LABS: ALBUMIN 1.5 G/DL (3.2-5.2); ALKALINE PHOSPHATASE 398 U/L (46-116); ALT/SGPT 23 U/L (7.0-40); AST/SGOT 53 U/L (<34); BILIRUBIN,TOTAL 1.3 MG/DL (0.3-1.2); BLOOD UREA NITROGEN 25 MG/DL (9-23); CALCIUM LEVEL 9.3 MG/DL (8.5-10.1); CARBON DIOXIDE LEVEL 32 MMOL/L (20-31); CHLORIDE LEVEL 90 MMOL/L (98-107); CREATININE FOR GFR 0.46 MG/DL (0.55-1.30); GLOMERULAR FILTRATION RATE > 60.0 (>51); GLUCOSE, FASTING 117 MG/DL (60-100); MAGNESIUM LEVEL 1.9 MG/DL (1.8-2.4); POTASSIUM SERUM 3.4 MMOL/L (3.5-5.1); SODIUM LEVEL 131 MMOL/L (136-145); TOTAL PROTEIN 6.1 G/DL (5.7-8.2)
[2023-07-26 07:52] VITALS: BP 114/73; TEMP 97.8; O2SAT 99
[2023-07-26] MEDS: LACTOBACILLUS ACIDOPHILUS CAP (BACID) PO SCH ×3 (09:29→18:52)
[2023-07-26] MEDS: SALIVA SUBSTITUTE(MOUTHKOTE) BTL MT SCH ×4 (09:30→21:29)
[2023-07-26] MEDS: SENOKOT S TAB PO SCH ×2 (09:31→21:28)
[2023-07-26] MEDS: GABAPENTIN 400MG CAP PO SCH ×3 (09:31→21:28)
[2023-07-26] MEDS: MORPHINE 2 MG/ML 1ML VIAL IV SCH (10:53)
[2023-07-26 12:49] VITALS: BP 123/91; TEMP 98.2; O2SAT 97
[2023-07-26 15:56] VITALS: BP 114/72; TEMP 98.1; O2SAT 98
[2023-07-26] MEDS: INSULIN LISPRO (NovoLOG) PER UNIT SC SCH (18:00)
[2023-07-26] MEDS ORDERED: FAT EMULSION IV 250 ML IV ONE (18:00)
[2023-07-26] MEDS ORDERED: MULTIVITAMIN -ADULT INJECTION 10 ML, ZINC/COPPER/MANGANESE/SELENIUM 1 ML in AMINO AC/EL... IV SCH (18:00)
[2023-07-26 21:00] VITALS: BP 131/88; TEMP 98.2; O2SAT 99
[2023-07-26] MEDS: MOM 30ML SUSPENSION UDC PO SCH (21:28)
[2023-07-26] MEDS: ATORVASTATIN 20 MG TAB PO SCH (21:28)
[2023-07-26 23:05] VITALS: BP 138/94; TEMP 98; O2SAT 99
[2023-07-27] VITALS (7 sets, daily range): BP systolic 121–141; BP diastolic 81–94; TEMP 97.6–99.1; O2SAT 96–99
[2023-07-27] MEDS: SUCRALFATE SUSP 1GM/10ML UD PO SCH ×5 (00:05→23:34)
[2023-07-27] MEDS: MORPHINE 2 MG/ML 1ML VIAL IV SCH ×3 (00:06→23:34)
[2023-07-27] MEDS: AMPICILLIN SOD/SULBACTAM SOD 3 GM in D5W MINI-BAG PLUS 100 ML IV SCH ×5 (00:06→22:47)
[2023-07-27] MEDS: HYDROMORPHONE HCL 0.5 MG/ 0.5 ML SYRINGE IV PRN ×5 (02:28→21:30)
[2023-07-27] MEDS: PANTOPRAZOLE SODIUM 40 MG in D5W 50 ML IV SCH ×5 (02:32→22:47)
[2023-07-27] MEDS: MORPHINE 4 MG/ML 1ML VIAL IV PRN ×4 (04:38→19:00)
[2023-07-27] MEDS: SODIUM CHLORIDE 0.9% INJ 10 ML SYR IV SCH ×3 (06:00→17:40)
[2023-07-27] MEDS: INSULIN LISPRO (NovoLOG) PER UNIT SC SCH ×5 (06:00→23:37)
[2023-07-27] MEDS ORDERED: KCL 10MEQ/100ML SWI (KRUN) 10 MEQ in IV 1 EA IV ONE (08:00)
[2023-07-27] MEDS: LACTOBACILLUS ACIDOPHILUS CAP (BACID) PO SCH ×3 (09:16→17:19)
[2023-07-27] MEDS: GABAPENTIN 400MG CAP PO SCH ×3 (09:16→21:30)
[2023-07-27] MEDS: SENOKOT S TAB PO SCH ×2 (09:18→21:30)
[2023-07-27] MEDS: SALIVA SUBSTITUTE(MOUTHKOTE) BTL MT SCH ×4 (09:19→21:31)
[2023-07-27] MEDS ORDERED: AMINO AC/ELECTROLYTE/DEX/CALC 2,000 ML IV SCH (18:00)
[2023-07-27] MEDS ORDERED: FAT EMULSION IV 250 ML IV ONE (18:00)
[2023-07-27] MEDS: ATORVASTATIN 20 MG TAB PO SCH (21:30)
[2023-07-27] MEDS: MOM 30ML SUSPENSION UDC PO SCH (21:31)
[2023-07-28 00:12] VITALS: BP 141/85; TEMP 98.2; O2SAT 99
[2023-07-28] MEDS: HYDROMORPHONE HCL 0.5 MG/ 0.5 ML SYRINGE IV PRN ×5 (01:49→19:49)
[2023-07-28 03:35] VITALS: BP 143/90; TEMP 98; O2SAT 98
[2023-07-28] MEDS: PANTOPRAZOLE SODIUM 40 MG in D5W 50 ML IV SCH ×2 (03:38→09:08)
[2023-07-28] MEDS: MORPHINE 4 MG/ML 1ML VIAL IV PRN ×2 (04:17→09:15)
[2023-07-28] MEDS: SODIUM CHLORIDE 0.9% INJ 10 ML SYR IV SCH ×2 (05:18→09:00)
[2023-07-28] MEDS: AMPICILLIN SOD/SULBACTAM SOD 3 GM in D5W MINI-BAG PLUS 100 ML IV SCH ×2 (05:41→12:43)
[2023-07-28] MEDS: SUCRALFATE SUSP 1GM/10ML UD PO SCH ×2 (05:41→12:44)
[2023-07-28] MEDS: INSULIN LISPRO (NovoLOG) PER UNIT SC SCH ×2 (05:47→12:44)
[2023-07-28 08:00] LABS: BASO % 0.1 % (0.0-1.0); EOS # 0.6 10^3/uL (0.0-0.5); EOS % 4.2 % (0.0-3.0); HEMATOCRIT 27.6 % (36.0-47.0); HEMOGLOBIN 8.6 g/dl (12.0-15.5); LYMPH # 1.6 10^3/uL (1.5-5.0); LYMPH % 11.5 % (24.0-44.0); MEAN CORPUSCULAR HGB CONC 31.2 g/dl (32.0-36.5); MEAN CORPUSCULAR VOLUME 89.9 fl (80.0-96.0); MONO # 1.1 10^3/uL (0.0-0.8); MONO % 7.9 % (2.0-8.0); NEUTROPHILS # 10.2 10^3/uL (1.5-8.5); NEUTROPHILS % 75.5 % (36.0-66.0); RED BLOOD COUNT 3.07 10^6/uL (4.00-5.40); WHITE BLOOD COUNT 13.6 10^3/uL (4.0-10.0)
[2023-07-28 08:14] LABS: PLATELET COUNT, AUTOMATED 97 10^3/uL (150-450)
[2023-07-28 08:23] LABS: BLOOD UREA NITROGEN 20 MG/DL (9-23); CALCIUM LEVEL 9.9 MG/DL (8.5-10.1); CARBON DIOXIDE LEVEL 32 MMOL/L (20-31); CHLORIDE LEVEL 93 MMOL/L (98-107); CREATININE FOR GFR 0.36 MG/DL (0.55-1.30); GLOMERULAR FILTRATION RATE > 60.0 (>51); GLUCOSE, FASTING 118 MG/DL (60-100); MAGNESIUM LEVEL 1.9 MG/DL (1.8-2.4); POTASSIUM SERUM 3.2 MMOL/L (3.5-5.1); SODIUM LEVEL 132 MMOL/L (136-145)
[2023-07-28] MEDS: LACTOBACILLUS ACIDOPHILUS CAP (BACID) PO SCH ×2 (09:08→12:44)
[2023-07-28] MEDS: SALIVA SUBSTITUTE(MOUTHKOTE) BTL MT SCH ×5 (09:09→23:41)
[2023-07-28] MEDS: SENOKOT S TAB PO SCH (09:09)
[2023-07-28] MEDS: GABAPENTIN 400MG CAP PO SCH ×4 (09:09→22:30)
[2023-07-28] MEDS: KCL 10MEQ/100ML SWI (KRUN) 10 MEQ in IV 1 EA IV SCH ×2 (10:05→11:35)
[2023-07-28] MEDS: MORPHINE 2 MG/ML 1ML VIAL IV SCH (11:36)
[2023-07-28] MEDS ORDERED: ONDANSETRON 4MG 2ML VIAL IV PRN (12:50)
[2023-07-28] MEDS ORDERED: MORPHINE 2 MG/ML 1ML VIAL IV PRN (12:50)
[2023-07-28] MEDS ORDERED: HYOSCYAMINE SULFATE 0.125 MG SUBL TABLET PO PRN (12:50)
[2023-07-28] MEDS ORDERED: SCOPOLAMINE 1MG TRANSDERMAL PATCH TOP PRN (12:50)
[2023-07-28] MEDS ORDERED: MORPHINE 10MG/0.5ML ORAL CONCENTRATE SOLUTION U/D SL PRN (12:50)
[2023-07-28] MEDS ORDERED: ONDANSETRON 4MG ORAL DISINTEGRATING TAB PO PRN (12:50)
[2023-07-28] MEDS ORDERED: LORazepam 1 MG TAB PO PRN (12:50)
[2023-07-28] MEDS ORDERED: MORPHINE 2 MG/ML 1ML VIAL IV ONE (15:25)
[2023-07-28] MEDS: MORPHINE 2 MG/ML 1ML VIAL IV PRN ×2 (17:38→23:54)
[2023-07-28] MEDS ORDERED: FAT EMULSION IV 250 ML IV ONE (18:00)
[2023-07-28] MEDS ORDERED: MULTIVITAMIN -ADULT INJECTION 10 ML, ZINC/COPPER/MANGANESE/SELENIUM 1 ML in AMINO AC/EL... IV SCH (18:00)
[2023-07-28] MEDS ORDERED: INSULIN LISPRO (NovoLOG) PER UNIT SC SCH (18:00)
[2023-07-28] MEDS ORDERED: SIMETHICONE 80MG CHEW TAB PO ONE (23:30)
[2023-07-29] MEDS: HYDROMORPHONE HCL 0.5 MG/ 0.5 ML SYRINGE IV PRN ×4 (01:21→21:45)
[2023-07-29] MEDS: MORPHINE 2 MG/ML 1ML VIAL IV PRN ×4 (03:34→12:38)
[2023-07-29] MEDS: SALIVA SUBSTITUTE(MOUTHKOTE) BTL MT SCH ×4 (08:16→21:00)
[2023-07-29] MEDS: GABAPENTIN 400MG CAP PO SCH ×3 (08:17→21:00)
[2023-07-29] MEDS: LORazepam 2 MG/ML 1ML VIAL IV PRN (13:25)
[2023-07-29] MEDS ORDERED: MORPHINE 30 MG SA TAB PO SCH (14:00)
[2023-07-29] MEDS ORDERED: AMINO AC/ELECTROLYTE/DEX/CALC 2,000 ML IV SCH (18:00)
[2023-07-29] MEDS ORDERED: FAT EMULSION IV 250 ML IV ONE (18:00)
[2023-07-29] MEDS: fentaNYL 25 MCG/HR PATCH TOP SCH (18:11)
[2023-07-29] MEDS: FENTANYL REMOVAL DOCUMENTATION MISC XX SCH (18:16)
[2023-07-30] MEDS: HYDROMORPHONE HCL 0.5 MG/ 0.5 ML SYRINGE IV PRN ×5 (01:11→18:09)
[2023-07-30] MEDS: MORPHINE 2 MG/ML 1ML VIAL IV PRN (03:18)
[2023-07-30] MEDS: GABAPENTIN 400MG CAP PO SCH ×3 (08:38→20:00)
[2023-07-30] MEDS: SALIVA SUBSTITUTE(MOUTHKOTE) BTL MT SCH ×4 (08:39→20:54)
[2023-07-30] MEDS: LORazepam 2 MG/ML 1ML VIAL IV PRN ×2 (10:05→20:54)
[2023-07-30] MEDS ORDERED: FAT EMULSION IV 250 ML IV ONE (18:00)
[2023-07-30] MEDS ORDERED: AMINO AC/ELECTROLYTE/DEX/CALC 2,000 ML IV SCH (18:00)
[2023-07-31] MEDS: HYDROMORPHONE HCL 0.5 MG/ 0.5 ML SYRINGE IV PRN ×7 (01:50→23:49)
[2023-07-31] MEDS: GABAPENTIN 400MG CAP PO SCH ×3 (09:00→21:00)
[2023-07-31] MEDS: MORPHINE 10MG/0.5ML ORAL CONCENTRATE SOLUTION U/D SL PRN (09:20)
[2023-07-31] MEDS: SALIVA SUBSTITUTE(MOUTHKOTE) BTL MT SCH ×4 (09:22→21:51)
[2023-07-31] MEDS: MORPHINE 2 MG/ML 1ML VIAL IV PRN (12:55)
[2023-07-31] MEDS ORDERED: FAT EMULSION IV 250 ML IV ONE (18:00)
[2023-07-31] MEDS ORDERED: AMINO AC/ELECTROLYTE/DEX/CALC 2,000 ML IV SCH (18:00)
[2023-07-31] MEDS: LORazepam 2 MG/ML 1ML VIAL IV PRN (18:17)
[2023-08-01] MEDS: HYDROMORPHONE HCL 0.5 MG/ 0.5 ML SYRINGE IV PRN ×6 (02:47→22:10)
[2023-08-01] MEDS: MORPHINE 2 MG/ML 1ML VIAL IV PRN ×4 (04:04→13:19)
[2023-08-01] MEDS: SALIVA SUBSTITUTE(MOUTHKOTE) BTL MT SCH ×4 (08:41→20:25)
[2023-08-01] MEDS: GABAPENTIN 400MG CAP PO SCH ×3 (08:41→20:57)
[2023-08-01] MEDS: FENTANYL REMOVAL DOCUMENTATION MISC XX SCH (14:13)
[2023-08-01] MEDS: fentaNYL 25 MCG/HR PATCH TOP SCH (14:14)
[2023-08-01] MEDS: LORazepam 2 MG/ML 1ML VIAL IV PRN ×3 (14:32→20:25)
[2023-08-01] MEDS ORDERED: AMINO AC/ELECTROLYTE/DEX/CALC 2,000 ML IV SCH (18:00)
[2023-08-01] MEDS ORDERED: FAT EMULSION IV 250 ML IV ONE (18:00)
[2023-08-02] MEDS: MORPHINE 2 MG/ML 1ML VIAL IV PRN ×5 (01:14→18:13)
[2023-08-02] MEDS: HYDROmorphone HCL 2MG/ML 1ML VIAL IV PRN ×5 (03:49→22:49)
[2023-08-02] MEDS: GABAPENTIN 400MG CAP PO SCH ×3 (08:16→20:49)
[2023-08-02] MEDS: SALIVA SUBSTITUTE(MOUTHKOTE) BTL MT SCH ×4 (09:50→21:04)
[2023-08-02] MEDS ORDERED: SODIUM CHLORIDE 0.9% INJ 10 ML SYR IV PRN (11:50)
[2023-08-02] MEDS: SODIUM CHLORIDE 0.9% INJ 10 ML SYR IV SCH ×2 (13:04→16:14)
[2023-08-02] MEDS ORDERED: FAT EMULSION IV 250 ML IV ONE (18:00)
[2023-08-02] MEDS ORDERED: MULTIVITAMIN -ADULT INJECTION 10 ML, ZINC/COPPER/MANGANESE/SELENIUM 1 ML in AMINO AC/EL... IV SCH (18:00)
[2023-08-02] MEDS: LORazepam 2 MG/ML 1ML VIAL IV PRN ×2 (18:13→21:04)
[2023-08-03] MEDS: HYDROmorphone HCL 2MG/ML 1ML VIAL IV PRN ×4 (01:54→17:32)
[2023-08-03] MEDS: LORazepam 2 MG/ML 1ML VIAL IV PRN ×4 (01:54→15:46)
[2023-08-03] MEDS: SODIUM CHLORIDE 0.9% INJ 10 ML SYR IV SCH ×2 (05:06→17:57)
[2023-08-03] MEDS: GABAPENTIN 400MG CAP PO SCH ×3 (09:00→21:00)
[2023-08-03] MEDS: SALIVA SUBSTITUTE(MOUTHKOTE) BTL MT SCH ×4 (09:00→21:00)
[2023-08-03] MEDS: MORPHINE 10MG/0.5ML ORAL CONCENTRATE SOLUTION U/D SL PRN (23:21)
[2023-08-04] MEDS: MORPHINE 10MG/0.5ML ORAL CONCENTRATE SOLUTION U/D SL PRN (05:34)
[2023-08-04] MEDS: SODIUM CHLORIDE 0.9% INJ 10 ML SYR IV SCH ×2 (05:44→18:12)
[2023-08-04] MEDS: MORPHINE 2 MG/ML 1ML VIAL IV PRN ×5 (08:32→23:47)
[2023-08-04] MEDS: GABAPENTIN 400MG CAP PO SCH ×3 (09:00→21:00)
[2023-08-04] MEDS: SALIVA SUBSTITUTE(MOUTHKOTE) BTL MT SCH ×3 (10:18→23:43)
[2023-08-04] MEDS: LORazepam 2 MG/ML 1ML VIAL IV PRN ×2 (15:44→23:47)
[2023-08-04] MEDS: fentaNYL 25 MCG/HR PATCH TOP SCH (23:48)
[2023-08-05] MEDS: SALIVA SUBSTITUTE(MOUTHKOTE) BTL MT SCH (00:01)
[2023-08-05] MEDS: FENTANYL REMOVAL DOCUMENTATION MISC XX SCH (00:47)
== END 2023-08-05 02:51 | disposition expired | DRG 248 ==
LOC: M ED 10:59 → M ED INP 16:11 → ENRESERV 17:16 → M MSPAV 17:37 → M PCU 07-15 12:43 → M MS5PR 07-28 18:47
PROVIDERS: ADMIT Internal Medicine Nephrology; ATTEND Student in an Organized Health Care Education/Training Program
PROC: 0W9G30Z Drainage of Peritoneal Cavity with Drainage Device, Percutaneous Approach (ICD-10-PCS; 2023-07-09)
PROC: 30233N1 Transfusion of Nonautologous Red Blood Cells into Peripheral Vein, Percutaneous Approach (ICD-10-PCS; 2023-07-14)
PROC: 02HV33Z Insertion of Infusion Device into Superior Vena Cava, Percutaneous Approach (ICD-10-PCS; 2023-07-14)
PROC: 3E0333Z Introduction of Anti-inflammatory into Peripheral Vein, Percutaneous Approach (ICD-10-PCS; principal; 2023-07-14 15:30)
PROC: XW033E5 Introduction of Remdesivir Anti-infective into Peripheral Vein, Percutaneous Approach, New Technology Group 5 (ICD-10-PCS; 2023-07-16)
DX: K65.1 Peritoneal abscess (principal); I21.A1 Myocardial infarction type 2; J12.82 Pneumonia due to coronavirus disease 2019; E43 Unspecified severe protein-calorie malnutrition; N17.9 Acute kidney failure, unspecified; C78.01 Secondary malignant neoplasm of right lung; E83.42 Hypomagnesemia; C78.02 Secondary malignant neoplasm of left lung; K56.609 Unspecified intestinal obstruction, unspecified as to partial versus complete obstruction; U07.1 COVID-19; E22.2 Syndrome of inappropriate secretion of antidiuretic hormone; C78.6 Secondary malignant neoplasm of retroperitoneum and peritoneum; C78.7 Secondary malignant neoplasm of liver and intrahepatic bile duct; E87.20 Acidosis, unspecified; E87.70 Fluid overload, unspecified; D62 Acute posthemorrhagic anemia; C56.9 Malignant neoplasm of unspecified ovary; K59.00 Constipation, unspecified; E86.0 Dehydration; Z66 Do not resuscitate; R74.01 Elevation of levels of liver transaminase levels; Z68.1 Body mass index [BMI] 19.9 or less, adult; G89.3 Neoplasm related pain (acute) (chronic); G43.909 Migraine, unspecified, not intractable, without status migrainosus; E78.5 Hyperlipidemia, unspecified; R00.0 Tachycardia, unspecified; Z79.899 Other long term (current) drug therapy; Z79.891 Long term (current) use of opiate analgesic; Z79.2 Long term (current) use of antibiotics; Z83.3 Family history of diabetes mellitus